=== PATIENT | female | born 1975 | race Caucasian/White ===

== ENCOUNTER 2019-08-21 14:08 | Emergency (ER) | payer BC, SELFPAY ==
--- NOTE | ~2019-08-21 | XR_ITS ---
EXAMINATION: XR chest 2V DATE: 08/21/2019 14:42 INDICATION: Cough and fever TECHNIQUE: PA and lateral views of the chest are obtained. COMPARISON: 03/16/2017 FINDINGS: The lungs are free of acute opacities. There is no pleural effusion or pneumothorax. The ca rdiomediastinal silhouette is normal. There is levoscoliosis of the upper thoracic spine. IMPRESSION: 1. No acute cardiopulmonary abnormality. Reviewed, dictated and finalized at location A.
--- NOTE | ~2019-08-21 | XR_ITS ---
EXAMINATION: XR sinus <3V INDICATION: Cough and fever TECHNIQUE: Three views of the paranasal sinuses are obtained. COMPARISON: None available FINDINGS: The paranasal sinuses are well pneumatized. No sinus opacification is identified. The facia l bones are unremarkable. There is levoscoliosis of the upper thoracic spine. IMPRESSION: 1. No evidence of sinusitis although sensitivity of radiographs is low. Reviewed, dictated and finalized at location A.
[2019-08-21 14:16] VITALS: BP 149/88; PULSE 75; RESP 16; TEMP 37.5; O2SAT 100
--- NOTE | 2019-08-21 14:36 | ED.URI ---
HPI - URI/Sore Throat General Chief Complaint: Upper Respiratory Infection Stated Complaint: SOB/chest hurts/drainage Source: patient and RN notes reviewed Mode of arrival: ambulatory Limitations: no limitations History of Present Illness HPI Narrative: The patient, a non-smoker/occasional drinker with Crohn's, presents with cough. Patient states she has a 5-day history of definite nasal congestion, postnasal drip and only minimal cough for which she was treated with Medrol Dosepak. No fever measured, wheeze N/V/D and she has insomnia, subjective shortness of breath [ yet good pulse ox] . Related Data Home Medications Medication Instructions Recorded Confirmed certolizumab pegol 400 mg SUB-Q ONCE 08/18/19 lactobacillus combination no.8 3 3,000 mmu cells PO DAILY 08/18/19 08/18/19 billion cell capsule lansoprazole 30 mg capsule,delayed 30 mg PO DAILY 08/18/19 release mercaptopurine 50 mg tablet 50 mg PO DAILY 08/18/19 multivitamin 1 tablet PO DAILY 08/18/19 08/18/19 certolizumab pegol [Cimzia] mg SUBCUT 08/21/19 Allergies Allergy/AdvReac Type Severity Reaction Status Date / Time No Known Allergies Allergy Verified 08/18/19 14:03 Review of Systems Review of Systems: Narrative: The patient has been informed that they may have pre-hypertension or Hypertension based on a BP reading in the department. I recommend that the patient call the primary care provider listed on their discharge instructions or a physician of their choice this week to arrange follow up for further evaluation of possible pre-hypertension or Hypertension General/Constitutional: No weight loss,fever Eyes: N0: Redness,discharge Ears/Nose/Throat: No: Epistaxis,ear discharge Respiratory: Denies: Hemoptysis Gastrointestinal: No Vomiting, Bleeding-rectal Skin: No Lumps, eruption Neurologic: No Focal Weakness,Sz Hematologic: Denies: Petechiae/Purpura Psychiatric: No: Suicida ideationl All Other Systems: Reviewed and Negative [facility] Past Medical History Medical History (Updated 08/21/19 @ 15:08 by Nicholas Elizalde MD) Dyspnea Social History Social History Smoking status: Never smoker Alcohol intake: current Comments At time of signature, agree with nursing past medical, surgical, social and family history. There is no relevant family history pertinent to the presenting complaint Exam Narrative: Exam Narrative: General Appearance: Well appearing, Well nourished EYE: PERRLA, Conjunctiva clear Ears: Auditory canal normal, TM normal Nose: Rhinorrhea, Mucousal erythema Mouth/Throat: MM moist, Uvula midline, Pharyngeal erythema Neck: Supple, No adenopathy Respiratory: No respiratory distress, airway patent Cardiovascular: RRR, No JVD Musculoskeletal: Non tender, Normal strength Skin: Warm, Dry Neurological: A&O x3, CN II-XII intact Psychiatric: Normal mood, Normal affect The patient agrees- in light of [facility]- in my medical judgement, only a personal or video chat was preferable to fully undress & examine the patient exhibiting potential COVID symptoms, in order to limit risk of mutual infection. Course Vital Signs Vital signs: Vital Signs Temperature 99.5 F 08/21/19 14:16 Pulse Rate 75 08/21/19 14:16 Respiratory Rate 16 08/21/19 14:16 Blood Pressure 149/88 H 08/21/19 14:16 Pulse Oximetry 100 08/21/19 14:16 Temperature 99.5 F 08/21/19 14:16 Pulse Rate 75 08/21/19 14:16 Respiratory Rate 16 08/21/19 14:16 Blood Pressure 149/88 H 08/21/19 14:16 Pulse Oximetry 100 08/21/19 14:16 MDM - URI/Sore Throat Lab Data Labs: Influenza A Screen Negative Reference Range: Negative Influenza B Screen Negative Reference Range: Negative Discharge Plan Discharge Clinical Impression: Upper respiratory infection Qualifiers: URI type: unspecified URI
== END 2019-08-21 15:13 | disposition home or self-care (01) ==
PROVIDERS: Emergency Provider Emergency Medicine; PCP Internal Medicine
DX: J06.9 Acute upper respiratory infection, unspecified (principal); K50.90 Crohn's disease, unspecified, without complications
CPT/HCPCS: 70210; 71046; 87804; 99213; G0463

== ENCOUNTER → 2020-05-16 11:34 | Outpatient (CLI) | payer BC, SELFPAY ==
--- NOTE | ~2020-05-16 | XR_ITS ---
EXAMINATION: XR chest 2V 05/16/2020 11:52 INDICATION: Acute upper respiratory infection PROCEDURE: 2 view chest COMPARISON: Comparison to multiple prior studies sequentially, with oldest reviewed study dated 08/2010. FINDINGS: The lungs are clear. The cardiomediastinal silhouette is within normal limits. There are no pleural effusions. There is no pneumothorax suspected. IMPRESSION: 1: NO ACUTE CARDIOPULMONARY DISEASE. Reviewed, dictated and finalized at location A. 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
== END ==
PROVIDERS: Visit Provider Internal Medicine
DX: J06.9 Acute upper respiratory infection, unspecified (principal)
CPT/HCPCS: 71046

== ENCOUNTER 2020-05-17 08:31 | Outpatient (NON) | payer BC, SELFPAY ==
[2020-05-17 22:01] LABS: SARS-CoV-2 RNA PCR Negative
== END 2020-05-17 08:32 ==
LOC: ANHCOVIDDT 08:32
PROVIDERS: Visit Provider Nurse Practitioner
DX: Z20.828 Contact with and (suspected) exposure to other viral communicable diseases (principal); R68.89 Other general symptoms and signs
CPT/HCPCS: 87635; C9803; U0003

== ENCOUNTER 2020-05-31 07:14 | Outpatient (CLI) | payer BC, SELFPAY ==
--- NOTE | ~2020-05-31 | MM_ITS ---
EXAMINATION: MM screening [facility] BI w lena HISTORY: Screening mammogram TECHNIQUE: Craniocaudal and mediolateral oblique 3-D tomosynthesis images were obtained and synthetic 2-D images were generated. CAD analysis was submitted and interpreted. COMPARISON: 04/29/2019, 04/20/2018, 01/23/2017 BREAST PARENCHYMAL COMPOSITION: There are scattered areas of fibroglandular density. FINDINGS: RIGHT BREAST: There is no evidence of suspicious mass, calcification, or architectural distortion to suggest malignancy. There has been no significant interval change. LEFT BREAST: An asymmetry is present in the middle third of the slightly outer breast on the cranioca udal view. IMPRESSION: 1. Left breast asymmetry on the craniocaudal view. 2. Additional mammographic views and possible breast ultrasound are recommended. BI-RADS Category 0: Incomplete: Needs additional imaging evaluation. Reviewed, dictated and finalized at location A. WARE ARCHITECT IMPRESSION: 1. Left breast asymmetry on the craniocaudal view. 2. Additional mammographic views and possible breast ultrasound are recommended . BI-RADS Category 0: Incomplete: Needs additional imaging evaluation.
== END 2020-05-31 07:15 | disposition home or self-care (01) ==
PROVIDERS: PCP Internal Medicine; Visit Provider Obstetrics & Gynecology
DX: Z12.31 Encounter for screening mammogram for malignant neoplasm of breast (principal); R92.8 Other abnormal and inconclusive findings on diagnostic imaging of breast
CPT/HCPCS: 77063; 77067

== ENCOUNTER 2020-06-18 11:38 | Outpatient (CLI) | payer BC, SELFPAY ==
--- NOTE | ~2020-06-18 | MM_ITS ---
EXAMINATION: MM diagnostic mammo unilat LT HISTORY: Left breast asymmetry on screening craniocaudal view of 06/18/2020 TECHNIQUE: Additional 3-D tomosynthesis images of the left breast were performed and synthetic 2-D im ages were generated. CAD analysis was submitted and interpreted. COMPARISON: 05/31/2020 bilateral digital screening mammogram FINDINGS: The area of asymmetry noted. Mid depth in the outer left breast on CC projection is not con firmed on coned compression or ML Tomosynthesis views. IMPRESSION: 1. No mammographic evidence of malignancy 2. Routine annual mammographic screening is recommended. BI-RADS Category 1: Negative Reviewed, dictated and finalized at location A. 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
== END 2020-06-18 11:39 | disposition home or self-care (01) ==
PROVIDERS: PCP Internal Medicine; Visit Provider Obstetrics & Gynecology
DX: R92.8 Other abnormal and inconclusive findings on diagnostic imaging of breast (principal)
CPT/HCPCS: 77065

== ENCOUNTER 2021-08-14 13:35 | Outpatient (CLI) | payer BC, SELFPAY ==
--- NOTE | ~2021-08-14 | MM_ITS ---
EXAMINATION: MM screening [facility] BI w lena HISTORY: Screening mammogram TECHNIQUE: Craniocaudal and mediolateral oblique 3-D tomosynthesis images were obtained and synthetic 2-D images were generated. CAD analysis was submitted and interpreted. COMPARISON: 06/18/2020, 05/31/2020, 04/29/2019 BREAST PARENCHYMAL COMPOSITION: There are scattered areas of fibroglandular density. FINDINGS: There is no suspicious mass, calcification, or architectural distortion to suggest malignan cy in either breast. There has been no suspicious interval change. IMPRESSION: 1. No mammographic evidence of malignancy. 2. Recommend routine screening mammography in one year. BI-RADS Category 1: Negative Reviewed, dictated and finalized at location A.
== END 2021-08-14 13:36 | disposition home or self-care (01) ==
LOC: ANHIMG 13:37
PROVIDERS: PCP Internal Medicine; Visit Provider Obstetrics & Gynecology
DX: Z12.31 Encounter for screening mammogram for malignant neoplasm of breast (principal)
CPT/HCPCS: 77063; 77067

== ENCOUNTER 2022-03-26 18:46 | Emergency (ER) | payer BC, SELFPAY ==
--- NOTE | 2022-03-26 19:04 | ED.EYEPROB ---
HPI - Eye Problem General Chief complaint: Eye Problems Stated complaint: eye redness Time Seen by Provider: 03/26/22 19:05 Source: patient Mode of arrival: ambulatory Limitations: no limitations History of Present Illness HPI Narrative: 46-year-old immunocompromised female presenting for complaint of right lower eyelid redness this morning. She endorses a ?swelling? sensation. Reports mild drainage to eye this morning. Denies injury. Denies significant pain, itching, denies vision changes, photophobia or foreign body sensation. Has not attempted any alleviating measures. Denies sick contacts. Hx Crohn's disease, hemochromatosis, anemia. chief complaint: eye pain Related Data Home Medications Medication Instructions Recorded Confirmed multivitamin 1 tablet PO DAILY 08/18/19 03/26/22 certolizumab pegol 400 mg/2 mL 2 mg subcut WEEKLY 08/21/19 03/26/22 (200 mg/mL x2) subcutaneous syringe kit (Cimzia) budesonide-formoterol HFA 80 2 puff inhalation Q12H 01/17/21 03/26/22 mcg-4.5 mcg/actuation aerosol inhaler (Symbicort) lansoprazole 30 mg capsule,delayed 30 mg PO ONCE 01/17/21 03/26/22 release nortriptyline 10 mg capsule 10 mg PO DAILY 03/26/22 03/26/22 Allergies Allergy/AdvReac Type Severity Reaction Status Date / Time No Known Allergies Allergy Verified 03/26/22 19:06 Review of Systems Review of Systems: CONSTITUTIONAL: Denies body aches, fever, chills EYES: Endorses swelling, redness to right eye ENT: Denies rhinorrhea, congestion, sore throat, or otalgia. CARDIOVASCULAR: Denies chest pain, palpitations RESPIRATORY: Denies cough or dyspnea. SKIN: Denies rash, itching, or wounds. MUSCULOSKELETAL: Denies back pain, joint pain, or myalgia. NEUROLOGIC: Denies headache, numbness, tingling, or weakness. All systems reviewed & are unremarkable except as noted in HPI and below PMFSH Past Medical History Medical History COVID-19 Crohn's disease with complication Dyspnea Hemochromatosis associated with mutation in HFE gene Vitamin D deficiency Family History Family History Mother Hypertension Father Patient's father is in good health Family history of lymphoma Family history of malignant neoplasm of urinary bladder Sibling Family history of gastrointestinal disorder Social History Social History Smoking status: Never smoker Second hand tobacco smoke exposure: Yes Alcohol intake: current Alcohol use details: Social Comments At time of signature, I have reviewed and agree with nursing past medical, surgical, social and family history unless otherwise noted. Please see nursing chart for further information. There is no relevant family history pertinent to the presenting complaint Exam Narrative: GENERAL: Well-appearing HEAD: Normocephalic, atraumatic. EYES: Right conjunctival injection, no eye lid swelling or stye, no drainage, nontender. PERRLA, EOMI. Lid eversion showed no FB. ENT: Mucous membranes pink and moist. No rhinorrhea. TMs normal bilaterally. Throat normal. Uvula midline. CHEST: Clear to auscultation. HEART: Regular rate and rhythm. SKIN: Warm, dry, no rash. Normal skin turgor. NEURO: No focal deficits. Alert and oriented x3 Course Course Emergency Course: Patient is aware of diagnosis, understands and agrees to treatment plan. Anticipatory guidance given. Patient agrees to follow-up as directed and is aware of reasons to seek care at the emergency department. Portions of this record may have been created with voice recognition software Level of Care: Express Care Visit MDM - Eye Problem MDM Narrative Medical decision making narrative: Patient presented with c/o red eye. Given her immunocompromised state will give Rx abx gtts. Advised supportive measures and signs/symptoms to go
[2022-03-26 19:07] VITALS: BP 148/90; PULSE 85; RESP 16; TEMP 37.1; O2SAT 100
[2022-03-26 19:09] VITALS: BP 148/90; PULSE 85; RESP 16; TEMP 37.1; O2SAT 100
== END 2022-03-26 19:19 | disposition home or self-care (01) ==
PROVIDERS: Emergency Provider Nurse Practitioner Family; PCP Internal Medicine
DX: H57.89 Other specified disorders of eye and adnexa (principal); K50.90 Crohn's disease, unspecified, without complications; E83.110 Hereditary hemochromatosis; Z86.16 Personal history of COVID-19
CPT/HCPCS: 99213; G0463

== ENCOUNTER 2022-11-03 18:34 | Emergency (ER) | payer BC, SELFPAY ==
--- NOTE | ~2022-11-03 | XR_ITS ---
EXAMINATION: XR ankle LT min 3V DATE: 11/03/2022 18:57 INDICATION: Left ankle pain TECHNIQUE: Anteroposterior, lateral, mortise, and additional oblique view of the ankle were obtained. COMPARISON: None. FINDINGS: Bone alignment is normal. There is no fracture. There is lateral soft tissue swelling of th e ankle. IMPRESSION: 1. Ankle soft tissue swelling without acute osseous abnormality. Reviewed, dictated and finalized at location F.
--- NOTE | ~2022-11-03 | XR_ITS ---
EXAMINATION: XR foot LT min 3V DATE: 11/03/2022 18:57 INDICATION: Left foot pain TECHNIQUE: Dorsoplantar, lateral, and 2 oblique views of the left foot were obtained. COMPARISON: None. FINDINGS: Bone alignment is normal. There is no fracture. There is dorsal soft tissue swelling of the foot overlying the metatarsals. IMPRESSION: 1. Soft tissue swelling without acute osseous abnormality. Reviewed, dictated and finalized at location F.
[2022-11-03 18:39] VITALS: BP 171/96; PULSE 84; RESP 16; TEMP 36.9; O2SAT 100
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
== END 2022-11-03 20:05 | disposition home or self-care (01) ==
PROVIDERS: Emergency Provider Registered Nurse
DX: S99.922A Unspecified injury of left foot, initial encounter (principal); V18.4XXA Pedal cycle driver injured in noncollision transport accident in traffic accident, initial encounter; S93.402A Sprain of unspecified ligament of left ankle, initial encounter; S70.12XA Contusion of left thigh, initial encounter; K50.90 Crohn's disease, unspecified, without complications; Z86.16 Personal history of COVID-19
CPT/HCPCS: 73610; 73630; 99213; G0463

== ENCOUNTER 2022-11-22 07:21 | Outpatient (CLI) | payer BC, SELFPAY ==
--- NOTE | ~2022-11-22 | MM_ITS ---
EXAMINATION: MM screening [facility] BI w lena HISTORY: Screening mammogram TECHNIQUE: Craniocaudal and mediolateral oblique 3-D tomosynthesis images were obtained and synthetic 2-D images were generated. CAD analysis was submitted and interpreted. COMPARISON: 08/14/2021, 06/18/2020, 05/31/2020, 04/29/2019 BREAST PARENCHYMAL COMPOSITION:The breasts are heterogeneously dense, which may obscure small masses. FINDINGS: No suspicious mass, calcification, or architectural distortion are identified in either [place] ast to suggest malignancy. There has been no suspicious interval change. IMPRESSION: No mammographic evidence of malignancy. Recommend routine screening mammography in one year. BI-RADS Category 1: Negative Reviewed, dictated and finalized at location .
== END 2022-11-22 07:22 | disposition home or self-care (01) ==
LOC: ANHIMG 07:24
PROVIDERS: PCP Family Medicine; Visit Provider Obstetrics & Gynecology
DX: Z12.31 Encounter for screening mammogram for malignant neoplasm of breast (principal)
CPT/HCPCS: 77063; 77067

== ENCOUNTER 2023-02-24 08:09 | Observation (INO) | payer BC, SELFPAY ==
[2023-02-24] VITALS (13 sets, daily range): BP systolic 129–182; BP diastolic 85–103; PULSE 71–134; RESP 15–25; TEMP 36.1–37; O2SAT 99–100; BMI 24.3
--- NOTE | ~2023-02-24 | XR_ITS ---
EXAMINATION: XR chest 2V DATE: 02/24/2023 08:44 INDICATION: Chest pain. TECHNIQUE: Frontal and lateral views of the chest were obtained. COMPARISON: Chest 2 views 05/16/2020 FINDINGS: There is no pneumonia, pleural effusion, or pneumothorax. The heart size is normal. IMPRESSION: 1. No acute cardiopulmonary disease. Reviewed, dictated and finalized at location A.
--- NOTE | 2023-02-24 08:14 | ECG_ITS ---
Measurements Intervals [place] Rate: 130 P: 69 CT: 124 QRS: -1 QRSD: 81 T: 62 QT: 272 QTc: 401 Interpretive Statements SINUS TACHYCARDIA INCOMPLETE RIGHT BUNDLE BRANCH BLOCK ABNORMAL ECG NO PREVIOUS ECG AVAILABLE FOR COMPARISON Electronically Signed On 02-24-2023 8:34:45 CDT by Ronal Bartholomew D.O.
--- NOTE | 2023-02-24 08:24 | ED.CHESTPAIN ---
HPI - Chest Pain General Chief Complaint: Chest Pain Stated Complaint: chest pain Time Seen by Provider: 02/24/23 08:12 History of Present Illness HPI narrative: 47-year-old female with history of Crohn's disease presenting to the ED for evaluation of chest pain and rapid heart rate that started this morning when she woke up. Patient had multiple episodes this morning where she felt lightheaded and dizzy with ambulation. While patient was attempting to get to work she had increased lightheaded dizziness and felt that she was having rapid heart rate. Upon arrival to the ED patient's heart rate was 200. Shortly after arrival into the room patient's heart rate did decrease down to 115 and patient did feel improved. Patient denies any prior history of coronary artery disease. Patient states she is going to be started on medications for blood pressure but is not on any hypertensive medications at this time. Patient denies any prior history of PE or DVT. Related Data Home Medications Medication Instructions Recorded Confirmed multivitamin 1 tablet PO DAILY 08/18/19 02/24/23 certolizumab pegol 400 mg/2 mL See Rx Instructions .Route .COMPLEX 08/21/19 02/24/23 (200 mg/mL x2) subcutaneous syringe kit (Cimzia) nortriptyline 10 mg capsule 10 mg PO HS 03/26/22 02/24/23 benzonatate 200 mg capsule 200 mg PO Q6H PRN Cough 02/24/23 02/24/23 budesonide-formoterol HFA 160 1 inh inhalation Q12H 02/24/23 02/24/23 mcg-4.5 mcg/actuation aerosol inhaler (Symbicort) Allergies Allergy/AdvReac Type Severity Reaction Status Date / Time No Known Allergies Allergy Verified 11/05/22 08:15 Review of Systems Review of Systems: All systems reviewed & are unremarkable except as noted in HPI and below PMFSH Past Medical History Medical History (Updated 02/24/23 @ 15:30 by Erica Obrien PA-C) COVID-19 Crohn's disease Hemochromatosis associated with mutation in HFE gene Hypertension Obstructive sleep apnea Noted on sleep study in December 2012. Vitamin D deficiency Surgical History Surgical History (Updated 02/24/23 @ 15:28 by Erica Obrien PA-C) History of nasal septoplasty For deviated septum. History of wisdom tooth extraction Family History Family History Mother Hypertension Father Patient's father is in good health Family history of lymphoma Family history of malignant neoplasm of urinary bladder Sibling Family history of gastrointestinal disorder Social History Social History (Updated 02/24/23 @ 15:29 by Erica Obrien PA-C) Social History: Surrogate medical decision maker: Bk Guidry, spouse. Code status: Full code. Smoking status: Never smoker Second hand tobacco smoke exposure: Yes Alcohol intake: never Alcohol use details: Social Lack of Transportation: No Lack of Food: Never True Current Housing: I Have Housing Concerned About Future Housing: No Difficulty Paying Gas/Electric Bills: No Difficulty Paying for Meds: No Currently Unemployed: No Education: Bachelor's Degree Difficulty w/ Childcare or Family Care: No Spiritual care concerns: No Exam Narrative: APPEARANCE: Uncomfortable appearing HEAD: normocephalic, atraumatic. EYES: PERRLA/EOMI, conjunctivae clear. NOSE: Normal no drainage NECK: Supple. No adenopathy, no masses. RESPIRATORY: Airway patent, respirations nonlabored. Clear to auscultation bilaterally, no rales, rhonchi, wheezing. CARDIOVASCULAR: Regular rate and rhythm without murmurs rubs or gallops. ABDOMINAL: Soft, nontender, nondistended, normal bowel sounds MUSCULOSKELETAL: Moves all extremities. Strength/ROM intact, No edema, No calf tenderness. NEURO: Alert. Cranial nerves II through XII intact. Good gait. Good coordination SKIN: Warm, dry. Normal Color Course Course Emergency Course: 47-year-old female presented ED for evaluation of chest pain and rapid heart rate.
[2023-02-24 08:42] LABS: Basophils Absolute Auto 0.1 K/mm3 (0.0-0.1); Basophils Percent Auto 0.4 % (0.2-1.2); Eosinophils Absolute Auto 0.1 K/mm3 (0-0.3); Eosinophils Percent Auto 0.5 % (0-4.4); Hematocrit 45.1 % (37.0-47.0); Hemoglobin 14.7 g/dL (12.0-15.0); Immature Granulocyte Absolute 0.04 K/mm3 (0.00-0.031); Immature Granulocyte Percent A 0.3 % (0-0.5); Lymphocytes Percent Auto 10.4 % (18.3-44.2); Mean Corpuscular HGB Conc 32.6 g/dl (32-36); Mean Corpuscular Hemoglobin 28.1 pg (26-34); Mean Corpuscular Volume 86.1 fl (80-100); Monocytes Absolute Auto 0.9 K/mm3 (0.1-0.6); Monocytes Percent Auto 7.3 % (2.6-8.5); Neutrophils Absolute Auto 9.4 K/mm3 (1.3-6.7); Neutrophils Percent Auto 81.1 % (45.5-73.1); Platelet Count Result 347 k/mm3 (150-375); Red Blood Count 5.24 M/mm3 (4.2-5.4); Red Cell Distribution Width 12.6 % (11.5-14.5); White Blood Count 11.6 K/mm3 (4.5-10.0)
[2023-02-24 08:46] LABS: Alanine Aminotransferase 30 U/L (6-35); Albumin Level 5.1 g/dL (3.5-5.1); Alkaline Phosphatase 82 U/L (38-126); Anion Gap 9 mmol/L (8-16); Aspartate Amino Transferase 38 U/L (14-36); Bilirubin,Total 0.7 mg/dL (0.2-1.3); Blood Urea Nitrogen 18 mg/dL (7-17); Calcium 9.9 mg/dL (8.4-10.2); Carbon Dioxide 27 mmol/L (22-30); Chloride 105 mmol/L (98-107); Estimated Glomerular Filt Rate > 60; Glucose 103 mg/dL (65-110); INR 0.9; Lipase 96 U/L (23-300); Potassium 4.2 mmol/L (3.4-5.0); Prothrombin Time 12.9 Seconds (11.1-14.7); Sodium 141 mmol/L (137-145)
[2023-02-24 08:47] LABS: Partial Thromboplastin Time 25.7 SECONDS (22.3-36.8)
[2023-02-24 08:54] LABS: D Dimer 0.29 ug/mL (<0.48)
[2023-02-24] MEDS: SODIUM CHLORIDE 0.9% IV 1,000 ML 999 ML (08:54)
[2023-02-24 08:57] LABS: Troponin I < 0.012 ng/mL (0.000-0.034)
[2023-02-24 11:55] LABS: Troponin I 0.026 ng/mL (0.000-0.034)
--- NOTE | 2023-02-24 15:19 | PM.IMHP ---
H&P: HPI History of Present Illness Date/Time: 02/24/23 15:20 Chief Complaint: Chest pain. Narrative: This is a very pleasant 47-year-old female with Crohn's disease and sleep apnea who presented to the emergency department via private vehicle from home for evaluation of chest pain. The patient provides the following history. She got up at about 03:00 and took some Tylenol for headache. She was able to fall back asleep in her alarm went off at 05:15 as per usual. She stood up to get ready for the day when she suddenly felt dizzy, lightheaded, and nauseated with sensations of racing heart. She sat back down and the symptoms seemed to improve somewhat. Each time she stood up however they returned. She had to sit down to take her shower and she had difficulties getting ready for work. Her heart was pounding so fast and so hard that she could hear it into her ears. Her chest was tight and she was feeling short of breath. After couple of hours her symptoms were not improving and she decided to come in for evaluation. With further questioning she does endorse having a few episodes over the past 1.5 months where her heart will suddenly start racing and fluttering with feelings of lightheadedness and blurry vision however that seems to last seconds before resolving. When she was initially hooked up to the monitor in the emergency department her post was reportedly over 200 however she slow down on her own into the 120s and her EKG looks like sinus tachycardia. Troponins have thus far been negative. She has not had any further episodes of racing heart but she continues to have mild chest tightness. She has no known history of cardiac dysrhythmia or thyroid disease. She denies significant caffeine and alcohol use. No drug use. She has fallen out of favor of using her CPAP although her remarks that she has periods of time or she stops breathing at night. No recent illnesses. Of note her blood pressures have been slowly going up over the years and she has an upcoming appointment with her doctor discussed the possibility of starting blood pressure medications. Review of Systems Review of Systems: Twelve systems were reviewed and are negative except for as per HPI. [facility] Past Medical History Medical History COVID-19 Crohn's disease Hemochromatosis associated with mutation in HFE gene Poorly documented, patient denies Hypertension Obstructive sleep apnea Noted on sleep study in December 2012. Vitamin D deficiency Surgical History Surgical History History of nasal septoplasty For deviated septum. History of wisdom tooth extraction Family History Family History Mother Hypertension Father Patient's father is in good health Family history of lymphoma Family history of malignant neoplasm of urinary bladder Sibling Family history of gastrointestinal disorder Social History Social History Social History: Surrogate medical decision maker: Bk Guidry, spouse. Code status: Full code. Smoking status: Never smoker Second hand tobacco smoke exposure: Yes Alcohol intake: never Alcohol use details: Social Lack of Transportation: No Lack of Food: Never True Current Housing: I Have Housing Concerned About Future Housing: No Difficulty Paying Gas/Electric Bills: No Difficulty Paying for Meds: No Currently Unemployed: No Education: Bachelor's Degree Difficulty w/ Childcare or Family Care: No Spiritual care concerns: No Meds Home Medications and Allergies Home Medications Medication Instructions Recorded Confirmed Type multivitamin 1 tablet PO DAILY 08/18/19 02/24/23 History certolizumab pegol 400 mg/2 mL See Rx Instructions .Route .COMPLEX 08/21/19 02/24/23 History (200 mg/
[2023-02-24 15:21] LABS: Troponin I 0.019 ng/mL (0.000-0.034)
--- NOTE | 2023-02-24 15:50 | ADMGEN ---
This patient, Libertad Guidry, was admitted to IMU Room 214-01. Patient/family oriented to hospital policies and general routines including ID bracelet, bed and alarms, visiting hours, pain management, procedures, bathroom and other care routines, personal items, smoking policy, room service/diet, and visiting hours. Information on how to activate the Rapid Response Team has been discussed. Patient/Family are encouraged to report perceived risks to care and to ask questions if they do not understand what they are told or what they should do.
[2023-02-24] MEDS: ACETAMINOPHEN 325 MG TABLET 650 MG PO ×2 (16:26→23:14)
[2023-02-24 20:05] LABS: Magnesium 2.2 mg/dL (1.6-2.3)
[2023-02-24 20:18] LABS: Troponin I < 0.012 ng/mL (0.000-0.034)
[2023-02-25] VITALS (12 sets, daily range): BP systolic 142–171; BP diastolic 83–102; PULSE 63–91; RESP 16–20; TEMP 35.8–36.6; O2SAT 97–100
--- NOTE | 2023-02-25 | ECHO_ITS ---
Patient Info Name: Libertad Guidry Age: 47 years : 1975 Gender: Female Ht: 66 in Wt: 164 lbs BSA: 1.88 m2 HR: 78 bpm BP: 145 / 89 mmHg Heart Rhythm: Sinus Rhythm Technical Quality: Fair Exam Date: 02/25/2023 12:11 PM Exam Location: [facility] Pulmonary Patient Status: Inpatient Admit Date: 02/24/2023 Staff Ordering Physician: Erica Obrien PA-C Early Breastfeeding Care Specialist: Radha Mobley RDCS Attending Provider: Yared Carreon MD Referring Physician: Camille RIVAS; Exam Type: CA echo doppler color flow Study Info Indications R00.0 - Tachycardia, unspecified R07.9 - Chest pain, unspecified Complete two-dimensional, color flow and Doppler transthoracic echocardiogram is performed. Summary 1. Complete two-dimensional, color flow and Doppler transthoracic echocardiogram is performed. 2. Left ventricular chamber dimension is mildly enlarged. 3. Left ventricular systolic function is normal, estimated at 55-60%. 4. There is no increased left ventricular wall thickness. 5. The left ventricular diastolic function is normal. 6. Right atrial chamber dimension is mildly enlarged. 7. There is trace tricuspid valve regurgitation. 8. No pulmonary hypertension, estimated pulmonary arterial systolic pressure is 33 mmHg. 9. There is mild mitral valve regurgitation. Left Ventricle Left ventricular chamber dimension is mildly enlarged. Left ventricular systolic function is normal, estimated at 55-60%. There is no increased left ventricular wall thickness. The left ventricular diastolic function is normal. Right Ventricle Right ventricular chamber dimension is normal. Right ventricular systolic function is normal. Left Atria Left atrial chamber dimension is normal. Right Atria Right atrial chamber dimension is mildly enlarged. Aortic Valve The aortic valve is trileaflet. There is mild aortic valve sclerosis. There is no aortic valve stenosis. There is no aortic valve regurgitation. Pulmonic Valve The pulmonic valve is normal. There is trace pulmonic regurgitation. Mitral Valve The mitral valve has thickened leaflets. There is mild mitral valve regurgitation. Tricuspid Valve The tricuspid valve leaflets are normal. There is trace tricuspid valve regurgitation. No pulmonary hypertension, estimated pulmonary arterial systolic pressure is 33 mmHg. Pericardium/Pleural The pericardium appears normal. There is no pericardial effusion. Inferior Vena Cava Normal inferior vena cava with >50% collapse upon inspiration consistent with normal right atrial pressure, 5 mmHg. Aorta The aortic root size at the sinus of Valsalva is normal. Left Ventricular Outflow Tract Name Value Normal LVOT 2D LVOT Diameter 2.0 cm LVOT Doppler LVOT Peak Gradient 4 mmHg LVOT Mean Gradient 2 mmHg LVOT VTI 18 cm LVOT VTI/AV VTI Ratio 0.9 LVOT Stroke Volume 58 ml LVOT CO 13.8 l/min LVOT CI 7.4 l/min/m2 Pulmonic Valve Name
[2023-02-25 06:33] LABS: Anion Gap 9 mmol/L (8-16); Blood Urea Nitrogen 12 mg/dL (7-17); Calcium 9.1 mg/dL (8.4-10.2); Carbon Dioxide 26 mmol/L (22-30); Chloride 103 mmol/L (98-107); Cholesterol 210 mg/dL (0-200); Estimated CRCL calculation 83 ml/min; Estimated Glomerular Filt Rate > 60; Glucose 96 mg/dL (65-110); HDL Direct 72 mg/dL; Potassium 3.8 mmol/L (3.4-5.0); Sodium 138 mmol/L (137-145); Triglycerides 109 mg/dL (<150)
[2023-02-25 06:44] LABS: LDL Cholesterol Direct 91 mg/dL
[2023-02-25] MEDS: FLUTICASONE/SALMETEROL 115-21 MCG INHALER 1 PUFF INHALATION (08:03)
[2023-02-25] MEDS: ENOXAPARIN 40 MG/0.4 ML SYRINGE SUB-Q (08:34)
--- NOTE | 2023-02-25 10:33 | PM.IMPN ---
Progress Note: A&P Assessment and Plan (1) Tachycardia: Code(s): R00.0 - Tachycardia, unspecified Status: Acute (2) Chest pain: Code(s): R07.9 - Chest pain, unspecified Status: Acute (3) Hypertension: Code(s): I10 - Essential (primary) hypertension Status: Acute (4) Crohn's disease: Code(s): K50.90 - Crohn's disease, unspecified, without complications Status: Acute Plan A flutter and RVR The patient presented to the emergency department for evaluation sensations of racing heart and chest discomfort as HPI. Heart rate was over 200 when she got to the ER however it slow down quickly on its own thus it is difficult to say what rhythm she was in initially. She has had a couple of fleeting episodes of racing heart and fluttering as per HPI but nothing this longstanding. She is being monitored closely in IMU. Echocardiogram ordered for a.m.. TSH is within normal limits. We discussed the importance of being compliant with her CPAP. Consult mothercraft nurse for evaluation and management Essential hypertension, uncontrolled Not on home medication Start carvedilol 6.25 mg q.12 hours p.o., hydrochlorothiazide 25 mg daily p.o. She may need event monitor on discharge. No acute issues with regards for Crohn's disease. Her home medications will be reviewed and resumed as appropriate. Subjective Date/time seen: 02/25/23 10:33 Interval history: Patient feels better today, denies chest pain, palpitation, short of breath. Now patient has sinus rhythm Exam Narrative: General: Well-developed, nontoxic-appearing female in the semi-Hamilton position in bed in no distress. Weight: 69.3 kg. BMI: 24.3. HEENT: PERRL, EOMI. Sclera anicteric. Oral mucosa moist. Oropharynx clear. Neck: Supple. Respiratory: Lungs are clear to auscultation bilaterally. Cardiovascular: Regular rate and rhythm with S1-S2. Gastrointestinal: Abdomen is soft, nontender, and nondistended with positive bowel sounds. Skin: Warm and dry. No rash or lesions on limited exam. Extremities: No cyanosis, clubbing, or edema. Radial and pedal pulses intact. Neurological: Alert. Cranial nerves 2-12 are grossly intact. No gross focal deficits to casual conversation. Psychiatric: Pleasant and cooperative with normal mood and affect. Judgment and insight intact. Objective Data Vital Signs Vital Signs: Vital Signs - 24 hr 02/24/23 11:08 02/24/23 12:01 02/24/23 13:01 Temperature Pulse Rate 81 78 80 Respiratory Rate 15 19 18 Blood Pressure 129/90 142/95 H 149/98 H Pulse Oximetry 100 100 100 Oxygen Delivery Fraction of Inspired Oxygen 02/24/23 14:00 02/24/23 15:00 02/24/23 15:44 Temperature 98.2 F 98.0 F 98.6 F Pulse Rate 80 90 85 Respiratory Rate 16 16 18 Blood Pressure 150/97 H 153/99 H 148/85 H Pulse Oximetry 100 100 100 Oxygen Delivery Fraction of Inspired Oxygen 02/24/23 16:00 02/24/23 16:00 02/24/23 20:00 Temperature 97.1 F L Pulse Rate 89 71 Respiratory Rate 20 Blood Pressure 148/95 H Pulse Oximetry 99 Oxygen Delivery Room Air Fraction of Inspired Oxygen 02/24/23 23:10 02/24/23 20:00 02/24/23 20:00 Temperature 97 F L Pulse Rate 78 88 Respiratory Rate 18 Blood Pressure 150/97 H Pulse Oximetry 100 99 Oxygen Delivery Room Air Fraction of Inspired Oxygen 02/25/23 00:00 02/25/23 00:00 02/24/23 22:00 Temperature Pulse Rate 63 72 Respiratory Rate Blood Pressure Pulse Oximetry 100 Oxygen Delivery Room Air Fraction of Inspired Oxygen 02/25/23 02:00 02/25/23 04:00 02/25/23 04:00 Temperature 97.7 F Pulse Rate 65 71 Respiratory Rate 20 Blood Pressure 145/89 H Pulse Oximetry 98 98 Oxygen Delivery Room Air Fraction of Inspired Oxygen 02/25/23 04:00 02/25/23 06:00 02/25/23 08:04 Temperature Pulse Rate 67 82 Respiratory Rate Blood Pressure Pulse Oximetry 97 Oxygen Delivery Room A
--- NOTE | 2023-02-25 10:55 | PM.CNCAR ---
Assessment and Plan Assessment and plan (1) Tachycardia: Code(s): R00.0 - Tachycardia, unspecified Status: Acute Assessment and Plan: Patient presents with tachycardia reported 200 beats per minute highly suggestive of SVT. However, there is no documentation unfortunately available for review and confirmation. She has remained in sinus rhythm with intermittent sinus tachycardia with gradual rise and fall her heart rate. She has not had recurrent documented SVT or other bradyarrhythmia. At great length we discussed pathophysiology, management strategies with regards to SVT including observation on medical management, and or referral to electrophysiology for catheter based ablation depending on diagnosis and symptom complex. Clinically, she clearly appears to be highly symptomatic with the rapid tachycardia which diagnosis remains elusive. However, patient other symptoms for pervasive fatigue, dizziness more likely related to uncontrolled hypertension and untreated probably severe obstructive sleep apnea. We discussed increase flecainide arrhythmias and impact inquired life with untreated sleep apnea as well as her blood pressure. She has been started on carvedilol 6.25 mg twice daily by the hospitalist service which is fair. No other clear contribution to this time. TSH negative, electrolytes stable. Twelve lead ECG consistent with sinus tachycardia at presentation with RSR' V1 V2 heart rate 130 beats per minute otherwise borderline ECG. There is no clear evidence of significant inappropriate sinus tachycardia or posture orthostatic tachycardia syndrome given or more recent development of her symptoms. -Continue telemetry observation while hospitalized. Thirty day front desk monitor upon discharge through our office documentation of arrhythmia. -obtain 2D echo cardiac to assess LV size/function, valve pathology and pulmonary pressures LV wall thickness and chamber size. Further recommendation to follow after review. (2) Chest pain: Qualifiers: Chest pain type: other chest pain Qualified Code(s): R07.89 - Other chest pain Code(s): R07.9 - Chest pain, unspecified Status: Acute Assessment and Plan: Chest pain most likely secondary to demand ischemia in association with probable SVT resolved with termination. Serial troponins negative. No plans for ischemic evaluation at this time. Will review 2D echocardiogram as above. Recommendation to follow. DVT prophylaxis. No evidence for contribution by anemia, renal insufficiency or electrolyte abnormalities. Patient was ambulated with caution to avoid risk for falls and injuries given constellation of symptoms of presentation. (3) Hypertension: Qualifiers: Hypertension type: primary hypertension Qualified Code(s): I10 - Essential (primary) hypertension Code(s): I10 - Essential (primary) hypertension Status: Acute Assessment and Plan: Chronic, untreated hypertension. Initiate antihypertensive therapy. If significant LVH ARB may be beneficial. Patient markedly orthostatic, caution with diuretics antihypertensives such as hydrochlorothiazide. Intravascular volume depletion will worsen her tachycardic/compensatory heart rate response. (4) Near syncope: Code(s): R55 - Syncope and collapse Status: Acute Assessment and Plan: Patient denies syncope at any time. She does admit to some positional lightheadedness, and near syncope in conjunction with rapid heart rate probably due to SVT. Further workup as above. (5) Obstructive sleep apnea: Code(s): G47.33 - Obstructive sleep apnea (adult) (pediatric) Status: Acute Assessment and Plan: We discussed this at great length. Discussed the importance of compliance not only for quite life but for stabilization of blood pressure, reduction risk for recurrent SVT and the long-term effects of untreated severe obstructive sleep apnea. Apnea link
--- NOTE | 2023-02-25 15:26 | PM.DS ---
DS: Admitting Diagnosis Discharge Date Today Admitting Diagnosis (1) Tachycardia: ?Code(s): R00.0 - Tachycardia, unspecified ?Status:?Acute (2) Chest pain: ?Code(s): R07.9 - Chest pain, unspecified ?Status:?Acute (3) Hypertension: ?Code(s): I10 - Essential (primary) hypertension ?Status:?Acute (4) Crohn's disease: ?Code(s): K50.90 - Crohn's disease, unspecified, without complications ?Status:?Acute DS: Discharge Diagnosis Discharge Diagnosis (1) Near syncope: Code(s): R55 - Syncope and collapse Status: Acute Plan (1) Tachycardia: ?Code(s): R00.0 - Tachycardia, unspecified ?Status:?Acute (2) Chest pain: ?Code(s): R07.9 - Chest pain, unspecified ?Status:?Acute (3) Hypertension: ?Code(s): I10 - Essential (primary) hypertension ?Status:?Acute (4) Crohn's disease: ?Code(s): K50.90 - Crohn's disease, unspecified, without complications ?Status:?Acute Near syncope DS: Summary Hospital Course Hospital Course: Per H&P, this is a very pleasant 47-year-old female with Crohn's disease and sleep apnea who presented to the emergency department via private vehicle from home for evaluation of chest pain. The patient provides the following history. She got up at about 03:00 and took some Tylenol for headache. She was able to fall back asleep in her alarm went off at 05:15 as per usual. She stood up to get ready for the day when she suddenly felt dizzy, lightheaded, and nauseated with sensations of racing heart. She sat back down and the symptoms seemed to improve somewhat. Each time she stood up however they returned. She had to sit down to take her shower and she had difficulties getting ready for work. Her heart was pounding so fast and so hard that she could hear it into her ears. Her chest was tight and she was feeling short of breath. After couple of hours her symptoms were not improving and she decided to come in for evaluation. With further questioning she does endorse having a few episodes over the past 1.5 months where her heart will suddenly start racing and fluttering with feelings of lightheadedness and blurry vision however that seems to last seconds before resolving. When she was initially hooked up to the monitor in the emergency department her post was reportedly over 200 however she slow down on her own into the 120s and her EKG looks like sinus tachycardia. Troponins have thus far been negative. She has not had any further episodes of racing heart but she continues to have mild chest tightness. She has no known history of cardiac dysrhythmia or thyroid disease. She denies significant caffeine and alcohol use. No drug use. She has fallen out of favor of using her CPAP although her remarks that she has periods of time or she stops breathing at night. No recent illnesses. Of note her blood pressures have been slowly going up over the years and she has an upcoming appointment with her doctor discussed the possibility of starting blood pressure medications. The following medical issues have been addressed during hospitalization A flutter RVR vs SVT The patient presented to the emergency department for evaluation sensations of racing heart and chest discomfort as HPI. Heart rate was over 200 when she got to the ER however it slow down quickly on its own thus it is difficult to say what rhythm she was in initially. She has had a couple of fleeting episodes of racing heart and fluttering as per HPI but nothing this longstanding. She is being monitored closely in IMU. Echocardiogram REVEALS NORMAL EF, NO SIGNIFICANT VASCULAR DISEASE..? TSH is within normal limits. We discussed the importance of being compliant with her CPAP. Consult welder boilermaker for evaluation and management. Power Truck Driver agreed to discharge patient with event monitor on discharge. Cardiology will follow patient in office Essential hypertension, uncontrolled Not on home medic
--- NOTE | 2023-02-25 16:02 | PC.NURSE ---
On 02/25/23, the student, Aguilar [facility], provided care and completed [facility] documentation on this patient. I have reviewed the student's documentation and agree with the findings.
== END 2023-02-25 15:43 | disposition home or self-care (01) ==
LOC: ANHED 13:05 → ANHIMU 02-25 11:42
PROVIDERS: Physician Assistant; Admitting Provider Chiropractor; Emergency Provider Emergency Medicine; PCP Family Medicine; Visit Provider Hospitalist
DX: R00.0 Tachycardia, unspecified (principal); R07.9 Chest pain, unspecified; R55 Syncope and collapse; I10 Essential (primary) hypertension; K50.90 Crohn's disease, unspecified, without complications; R42 Dizziness and giddiness; R51.9 Headache, unspecified; I08.0 Rheumatic disorders of both mitral and aortic valves; I45.10 Unspecified right bundle-branch block; R05.9 Cough, unspecified; G47.33 Obstructive sleep apnea (adult) (pediatric); Z99.89 Dependence on other enabling machines and devices; E83.110 Hereditary hemochromatosis; Z86.16 Personal history of COVID-19; Z79.51 Long term (current) use of inhaled steroids; Z79.899 Other long term (current) drug therapy; Z82.49 Family history of ischemic heart disease and other diseases of the circulatory system
CPT/HCPCS: 36415; 71046; 80048; 80053; 80061; 83690; 83735; 84443; 84484; 85025; 85380; 85610; 85730; 93005; 93306; 94640; 96360; 96372; 99285; A9270; G0378; J1650; J7030

== ENCOUNTER 2023-05-15 03:00 | Day surgery (SDC) | payer BC, SELFPAY ==
[2023-05-15] VITALS (27 sets, daily range): BP systolic 119–184; BP diastolic 71–103; PULSE 46–77; RESP 12–21; TEMP 36.7–36.9; O2SAT 96–100; BMI 25.9
[2023-05-15 08:46] LABS: Basophils Absolute Auto 0.1 K/mm3 (0.0-0.1); Basophils Percent Auto 0.6 % (0.2-1.2); Eosinophils Absolute Auto 0.1 K/mm3 (0-0.3); Hematocrit 40.2 % (37.0-47.0); Hemoglobin 13.1 g/dL (12.0-15.0); Immature Granulocyte Absolute 0.02 K/mm3 (0.00-0.031); Immature Granulocyte Percent A 0.2 % (0-0.5); Lymphocytes Absolute Auto 1.41 K/mm3 (0.9-3.2); Lymphocytes Percent Auto 17.5 % (18.3-44.2); Mean Corpuscular HGB Conc 32.6 g/dl (32-36); Mean Corpuscular Hemoglobin 27.5 pg (26-34); Mean Corpuscular Volume 84.5 fl (80-100); Monocytes Absolute Auto 0.6 K/mm3 (0.1-0.6); Monocytes Percent Auto 7.2 % (2.6-8.5); Neutrophils Absolute Auto 5.9 K/mm3 (1.3-6.7); Neutrophils Percent Auto 73.5 % (45.5-73.1); Platelet Count Result 252 k/mm3 (150-375); Red Blood Count 4.76 M/mm3 (4.2-5.4); Red Cell Distribution Width 11.9 % (11.5-14.5)
[2023-05-15 08:55] LABS: Anion Gap 8 mmol/L (8-16); Blood Urea Nitrogen 22 mg/dL (7-17); Calcium 9.8 mg/dL (8.4-10.2); Carbon Dioxide 27 mmol/L (22-30); Chloride 106 mmol/L (98-107); Estimated CRCL calculation 63 ml/min; Estimated Glomerular Filt Rate > 60; Glucose 93 mg/dL (65-110); Potassium 4.4 mmol/L (3.4-5.0); Sodium 141 mmol/L (137-145)
[2023-05-15 09:11] LABS: Beta HCG Quantitative 4.13 mIU/ML
--- NOTE | 2023-05-15 09:13 | WPDMODSED ---
Moderate Sedation Note-Pt Data Patient Data Diagnosis: Chest pain/etiology uncertain Mildly abnormal stress test Supraventricular tachycardia Present Complaint: Intermittent chest pain Procedure to be performed/Plan: Left heart catheterization Allergies Allergy/AdvReac Type Severity Reaction Status Date / Time No Known Allergies Allergy Verified 05/14/23 12:46 Home Medications Medication Instructions Recorded Confirmed Type multivitamin 1 tablet PO DAILY 08/18/19 05/14/23 History certolizumab pegol 400 mg/2 mL See Rx Instructions .Route .COMPLEX 08/21/19 05/14/23 History (200 mg/mL x2) subcutaneous syringe kit (Cimzia) benzonatate 200 mg capsule 200 mg PO Q6H PRN Cough 02/24/23 05/14/23 History budesonide-formoterol HFA 160 1 inh inhalation Q12H 02/24/23 05/14/23 History mcg-4.5 mcg/actuation aerosol inhaler (Symbicort) carvedilol 6.25 mg tablet (Coreg) 6.25 mg PO Q12HR #60 tabs 02/25/23 05/15/23 Rx Current Medications: Active Medications Sodium Chloride (Normal Saline Iv) 500 mls @ 100 mls/hr IV CONT .Q5H LUISA Sedation/Anesthesia: No previous sedation/anesthesia problems (including family history). [facility] Past Medical History Medical History COVID-19 Crohn's disease Hemochromatosis associated with mutation in HFE gene Poorly documented, patient denies Hypertension Obstructive sleep apnea Noted on sleep study in December 2012. Vitamin D deficiency Surgical History Surgical History History of nasal septoplasty For deviated septum. History of wisdom tooth extraction Family History Family History Mother Hypertension Father Patient's father is in good health Family history of lymphoma Family history of malignant neoplasm of urinary bladder Sibling Family history of gastrointestinal disorder Social History Social History Social History: Surrogate medical decision maker: Bk Guidry, spouse. Code status: Full code. Smoking status: Never smoker Second hand tobacco smoke exposure: No Alcohol intake: never Alcohol use details: 1 per month Substance use: never Substance use type: does not use Lack of Transportation: No Lack of Food: Never True Current Housing: I Have Housing Concerned About Future Housing: No Difficulty Paying Gas/Electric Bills: No Difficulty Paying for Meds: No Currently Unemployed: No Education: Bachelor's Degree Difficulty w/ Childcare or Family Care: No Living arrangements: with family Spiritual care concerns: No Mod Sed Physical Exam Physical Exam Pre Procedural Exam: Normal: Appearance, Neck, Throat, Airway, Lungs, Heart Size, Heart Rate, Heart Rhythm, Neuro Exam and Extremities Hours since solid foods: 12 Hours since liquid intake: 12 Mallampati Classification: class II Internal Medicine - PN: Obj Da Vital Signs Vital Signs: Vital Signs - 24 hr 05/15/23 08:00 Temperature 36.7 C Pulse Rate 73 Respiratory Rate 18 Blood Pressure 150/93 H Pulse Oximetry 99 Oxygen Delivery Room Air Intake/Output Intake/Output: Intake & Output 05/12/23 05/13/23 05/14/23 05/15/23 23:59 23:59 23:59 23:59 Intake Total 0 Balance 0 Meds/Results Medications: Active Medications Generic Name Dose Route Start Last Admin Trade Name Freq PRN Reason Stop Dose Admin Sodium Chloride 500 mls @ 100 mls/hr 05/15/23 08:00 Normal Saline Iv IV CONT .Q5H LUISA Labs 05/15/23 08:31 05/15/23 08:31 Labs: Laboratory Results - last 24 hr 05/15/23 05/15/23 08:31 08:31 WBC 8.0 RBC 4.76 Hgb 13.1 Hct 40.2 MCV 84.5 MCH 27.5 MCHC 32.6 RDW 11.9 Plt Count 252 MPV 10.0 Immature Gran % (Auto) 0.2 Neut % (Auto) 73.5 H Lymph %
--- NOTE | 2023-05-15 10:02 | P.PCNCC_ITS ---
Cardiac Cath Procedure Note Date of procedure:: 05/15/23 Performing physician:: Yared Sheppard MD Indication:: History of chest pain/atypical of angina SVT mildly abnormal exercise stress test Brief clinical history:: this is a 48-year-old woman without any prior history of coronary disease. She has been experiencing episodes of intermittent chest pain for several months. She also has been found to have supraventricular tachycardia this however does not appear to correlate with her symptoms of chest pain. An exercise stress test demonstrated [address] segment elevation prompting recom mendation for this angiogram. Procedure Procedure performed:: Left ventriculogram coronary angiogram Sedation/Medication given:: fentanyl 50 mg Versed 2 mg case start time 944 a.m. case end time 10:00 a.m. sedation provided by Calvin Ewing RN, trained observer Access site:: right femoral artery Estimated blood loss:: 20 cc Procedure note:: patient was brought to the cardiac catheterization lab in the postabsorptive state where the right femoral triangle was prepared and draped in the usual fashion. Anesthesia was provided with 1% lidocaine infiltrated locally. Using the modified Seldinger technique the 5 femoral artery was punctured and a 5 [place] vascular sheath was placed. After this left heart catheterization was carried out. A 5 [place] angled pigtail catheter was used to measure left-sided hemodynamics as well as to injected left ventriculogram in the SMITH projection. Following this a standard 5 [place] FL4 catheter was used to engage and inject the left coronary artery and then a 5 [place] JR4 catheter to engage and inject the right coronary artery. the cineangiograms were then reviewed and the case was terminated. Femoral artery angiogram was performed through the sheath after which I determined to have sheath with direct manual compression. The procedure was well tolerated in the were no apparent complications. She left the cardiac catheterization with no evidence of groin hematoma. Findings:: Hemodynamics: Central aortic pressure is 162 over 84 left ventricle 162/5 end-diastolic pressure 16 there is no gradient across the aortic valve on pullback. Left ventricle: The LV is normal in size all segments contract appropriately the global ejection fraction is 55% without regional wall motion abnormality. The left main coronary artery is nicely patent the left anterior descending is a moderate caliber artery extending down to the end around the apex. The LAD and its branches are angiographically smooth and free of disease. The circumflex is a large caliber artery and is dominant to the posterior cir culation. The circumflex trunk, the marginal branches as well as the posterior branches are angiographically smooth and free of disease. The right coronary artery is medium in caliber and non dominant giving rise to 3 right ventricular branches. The right coronary is also smooth and angiographically free of disease. Conclusion:: 1. Left coronary dominant circulation with no angiographic evidence of coronary artery disease 2. normal left ventricular systolic function Yared Sheppard MD FACC
[2023-05-15] MEDS: LABETALOL HCL INJ 100 MG/20 ML VIAL 20 MG IV PUSH (10:58)
[2023-05-15] MEDS: SODIUM CHLORIDE 0.9% IV 1,000 ML 125 ML IV CONT (11:00)
== END 2023-05-15 16:20 | disposition home or self-care (01) ==
PROVIDERS: PCP Family Medicine; Visit Provider Specialist
PROC: 4A023N7 Measurement of Cardiac Sampling and Pressure, Left Heart, Percutaneous Approach (ICD-10-PCS; CPT 93452; principal; 2023-05-15 09:30)
DX: R94.39 Abnormal result of other cardiovascular function study (principal); I47.10 Supraventricular tachycardia, unspecified; R07.9 Chest pain, unspecified; K50.90 Crohn's disease, unspecified, without complications; I10 Essential (primary) hypertension; G47.33 Obstructive sleep apnea (adult) (pediatric); Z79.51 Long term (current) use of inhaled steroids
CPT/HCPCS: 36415; 80048; 84702; 85025; 93458; C1887; C1894; J1644; J2250; J3010; J7030; J7040

== ENCOUNTER → 2023-07-10 13:08 | Outpatient (CLI) | payer BC, SELFPAY ==
--- NOTE | ~2023-07-10 | US_ITS ---
EXAMINATION: US abdomen limited DATE: 07/10/2023 13:40 INDICATION: Elevated liver function tests TECHNIQUE: Multiple grayscale and Doppler ultrasound images of the abdomen were obtained. COMPARISON: None available FINDINGS: The head and body of the pancreas are normal. The pancreatic tail is obscured by bowel gas. There is a 12 mm cyst of the right hepatic lobe. The liver is otherwise normal with normal echogenic ity and echotexture. No surface nodularity. Normal hepatopetal flow in the main portal vein. The gall bladder is normal with no abnormal wall thickening, pericholecystic fluid or stones. The normal commo n bile duct measures 3 mm. There was no sonographic Alexandre sign. IMPRESSION: 1. Normal sonographic study of the gallbladder. Reviewed, dictated and finalized at location B. 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
== END ==
PROVIDERS: PCP Family Medicine; Visit Provider Family Medicine
DX: R74.01 Elevation of levels of liver transaminase levels (principal)
CPT/HCPCS: 76705

== ENCOUNTER 2023-08-14 06:55 | Outpatient (CLI) | payer BC, SELFPAY ==
--- NOTE | ~2023-08-14 | XR_ITS ---
Right Shoulder Technique: AP and axillary views were obtained. Clinical History: Pain Findings: No fracture or dislocation is seen. Osseous alignment is anatomic. The glenohumeral and acr omioclavicular joint spaces are preserved. Soft tissues are unremarkable. Impression: Unremarkable right shoulder radiographs. Reviewed, dictated and finalized at [facility]. Impression: Unremarkable right shoulder radiographs.
--- NOTE | ~2023-08-14 | XR_ITS ---
Cervical Spine: AP, lateral, open-mouth views Clinical History: Radiculopathy Findings: There is mild reversal normal cervical lordosis. There is advanced degenerative disc narrow ing at C6-C7. There is moderate degenerative disc narrowing at C5-C6. Mild facet arthropathy present. Pre-vertebral soft tissues are unremarkable. Impression: [id number] degenerative spondylosis, especially the lower cervical spine, as above. Reviewed, dictated and finalized at [facility]. Impression: [id number] degenerative spondylosis, especially the lower cervical spine, as above.
== END 2023-08-14 06:56 ==
PROVIDERS: PCP Family Medicine; Visit Provider Family Medicine
DX: M43.02 Spondylolysis, cervical region (principal); M25.511 Pain in right shoulder
CPT/HCPCS: 72050; 73030

== ENCOUNTER → 2023-08-21 08:29 | Outpatient (CLI) | payer BC, SELFPAY | PROVIDERS: PCP Family Medicine; Visit Provider Family Medicine | DX: G47.33 Obstructive sleep apnea (adult) (pediatric) (principal) | CPT/HCPCS: 99199 ==

== ENCOUNTER 2023-09-11 08:59 | Outpatient (CLI) | payer BC, SELFPAY ==
[2023-09-22 17:00] VITALS: BMI 26.6
--- NOTE | 2023-09-22 17:00 | WPDSLEEPSTUD ---
Sleep Study Date of Study: 09/11/23 Ordering Provider: Bruce Daniel MD Interpreting Physician: Cecile Murcia DO Sleep Study Type: Split Polysomnogram Height: 1.68 m Weight: 74.843 kg Body Mass Index: 26.6 Neck Circumference (inches): 13.5 [place]: 9 Reason for Sleep Study Previously diagnosed with LISA on 01/05/2023 that showed an overall AHI of 12.5 with desaturation down to 92%. PAP Titration on 01/14/2023 showed an optimal pressure of CPAP 6 cm H2O. Stopped using CPAP about 10 years ago. The patient had a Sultan home sleep test on 03/26/2023 that showed an AHI of 2.9 with desaturation down to 90%. Sleep History The patient is a 48-year-old female hypertension, anxiety, Crohn's disease and previously diagnosed sleep apnea that had a sleep study ordered by her primary care physician due to sleep disturbances. The patient occasionally awakens from sleep short of breath. She denies awakening at night with heartburn, belching or cough. She constantly snores loudly enough that others complain. She frequently has trouble sleeping when she has a cold. She occasionally wakes up gasping for air throughout the night. He frequently has breathing problems at night observed by herself or others. She rarely sweats excessively at night. She occasionally has heart palpitations or irregular heartbeats during the night. She denies falling asleep during the day and while driving. He denies sleep paralysis, cataplexy and hypnagogic / hypnopompic hallucinations. She denies having trouble at school or work due to sleepiness. She denies feeling afraid of going to sleep. She denies having nightmares. She denies remembering her dreams. She occasionally has thoughts racing through her mind. She rarely feels sad or depressed. She occasionally has anxiety. She occasionally has muscular tension. She rarely notices parts of her body jerk. She denies kicking during the night. She occasionally has crawling and aching feelings in her legs and occasionally has leg pain during the night. She denies grinding her teeth during sleep and denies awakening with morning jaw pain. She is occasionally bothered by pain during the day and occasionally awakened by pain during the night. She occasionally wakes up feeling stiff in the morning. She occasionally wakes up with sore or achy muscles. She occasionally wakes up with pain in the neck, spine and other joints. She goes to bed at 7:30 p.m. on weekdays and between 9-10 p.m. on the weekends. It takes her 1 hour to fall asleep. She wakes up 2-3 times throughout the night for unknown reasons and will either look at her phone, urinate or get a drink when she awakens. It takes her 20-30 minutes to fall back asleep. She wakes up at 4:30 a.m. on weekdays and between 430-5 a.m. on the weekends. She will stay in bed for 1 hour on weekdays after awakening and up to 3 hours on the weekends. She currently lives with her and son. She denies consuming any caffeinated beverages within 2 hours of bedtime. She denies engaging in physical exercise before bedtime. She will watch television before falling asleep. He denies taking naps in the afternoon or the evening. She consumes 1 cup of a caffeinated beverage per day during the week and to caffeinated beverages per day on the weekend. She consumes 2-3 alcoholic beverages per month. She denies tobacco and recreational drug use. [facility] Past Medical History Medical History COVID-19 Crohn's disease Hemochromatosis associated with mutation in HFE gene Poorly documented, patient denies Hypertension Obstructive sleep apnea Noted on sleep study in December 2012. Vitamin D deficiency Surgical History Surgical History History of nasal septoplasty For deviated septum. History of wisdom tooth extraction Family History Family History Mother Hypertension Father Patient's father is in good health Family history of lymphoma Family history of malignant neoplasm of urinary bladder Sibling Family history of gastrointestinal disorder Social History Social History Social History: Surrogate medical decision maker: Bk Guidry, spouse. Code status: Full code. Smoking status: Never smoker Second hand tobacco smoke exposure: No Alcohol intake: never Alcohol use details: 1 per month Substance use: never Substance use type: does not use Lack of Transportation: No Lack of Food: Never True Current Housing: I Have Housing Concerned About Future Housing: No Difficulty Paying Gas/Electric Bills: No Difficulty Paying for Meds: No Currently Unemployed: No Education: Bachelor's Degree Difficulty w/ Childcare or Family Care: No Living arrangements: with family Gender identity (if verbalized by the patient): Female Sexual Orientation (if Verbalized by the Patient): Straight or Heterosexual Spiritual care concerns: No Medications Home Medications Medication Instructions Recorded Confirmed Type multivitamin 1 tablet PO DAILY 08/18/19 05/14/23 History certolizumab pegol 400 mg/2 mL See Rx Instructions .Route .COMPLEX 08/21/19 05/14/23 History (200 mg/mL x2) subcutaneous syringe kit (Cimzia) carvedilol 6.25 mg tablet (Coreg) 6.25 mg PO Q12HR #60 tabs 02/25/23 05/15/23 Rx cholecalciferol (vitamin D3) 1,250 1,250 mcg PO WEEKLY #14 tabs 06/17/23 06/17/23 Rx mcg (50,000 unit) tablet escitalopram oxalate 10 mg tablet 10 mg PO DAILY #90 tabs 08/12/23 08/12/23 Rx (Lexapro) prednisone 20 mg tablet 40 mg PO DAILY #10 tabs 08/12/23 08/12/23 Rx Sleep Procedure A full night polysomnogram using the [employer] multi-channel system recorded the standard physiologic parameters including EEG, EOG, submentalis EMG, anterior tibialis EMG, EKG, body position, nasal and oral airflow using nasal pressure sensor and thermistor.? Respiratory parameters of chest and abdominal movements were recorded with Respiratory Inductance Plethysmography belts. Oxygen saturation was recorded by pulse oximetry. Video monitoring was also performed. Sleep stages, periodic limb movements, and EEG arousals were scored in 30 second epochs according to the criteria of the AASM Scoring Manual. The Apnea-Hypopnea Index was calculated using CMS guidelines for definition of hypopnea with 4% O2 desaturations while scoring respiratory events. Sleep Architecture During the diagnostic portion of the study, the total recording time was 161.3 minutes. The total sleep time was 126.5 minutes. Sleep latency was 12.3 minutes.? REM sleep was not achieved during this portion of the study. Sleep Efficiency was 78.4%. The patient had 3 awakenings for an awakening index of 1.4. Wake after sleep onset time was 22.5 minutes. The patient spent 14.0 minutes, 11.1% of total sleep time in Stage N1. The patient spent 95.0 minutes, 75.1% in Stage N2. The patient spent 17.5 minutes, 13.8% in Stage N3. The patient spent 0.0 minutes, 0.0% in Stage REM sleep. ? At 12:22:36 AM the patient was placed on PAP treatment and was titrated at pressures ranging from 5 cm H20 up to 15 cm H20. During the treatment portion of the study, the total recording time was 352.5 minutes.? The total sleep time was 172.5 minutes. Sleep latency was 31.0 minutes. REM latency was 189.5 minutes. Sleep Efficiency was 48.9%. Wake after Sleep Onset time was 149.0 minutes. The patient spent 53.5 minutes, 31.0% of total sleep time in Stage N1. The patient spent 111.5 minutes, 64.6% in Stage N2. The patient spent 0.0 minutes, 0.0% in Stage N3. The patient spent 7.5 minutes, 4.3% in Stage REM. Respiratory Analysis During the diagnostic portion of the study, the patient had 60 hypopneas and 19 obstructive apneas for an overall Apnea Hypopnea Index of 37.5 events per hour. The REM Apnea Hypopnea Index was 0. The NREM Apnea Hypopnea Index was 37.5. The patient had a Central Apnea Hypopnea Index of 0. There was no evidence of Michel-Adamson Respirations. During the treatment portion of the study, the patient had 14 hypopneas, 1 obstructive apneas and 1 central apnea for an overall Apnea Hypopnea Index of 5.6 events per hour. The REM Apnea Hypopnea Index was 8.0. The NREM Apnea Hypopnea Index was 5.5. The patient had a Central Apnea Hypopnea Index of 0.3. There was no evidence of Michel-Adamson Respirations. The patient was started on CPAP 5 cm H2O and titrated to CPAP 15 cm H2O due to hypopneas. The patient was able to fall asleep starting on CPAP 5 cm H2O. The patient was able to achieve REM sleep starting on CPAP 14 cm H2O. The patient was able to achieve a residual AHI less than 5 with both NREM and REM sleep in the supine position on 14 cm H2O. On CPAP 14 cm H2O, the patient spent 19 minutes in NREM and 7.5 minutes in REM with 1 central apnea, resulting in an AHI of 2.3. On CPAP 15 cm H2O, the patient spent 31 minutes in NREM and 0 minutes in REM with no respiratory events, resulting in an AHI of 0.The patient had a sleep efficiency of 28.2% on 14 cm H2O and 78.5% on 15 cm H2O. Arousals During the diagnostic portion of the study, there were a total of 70 arousals for an arousal index of 33.2.? There were 31 respiratory arousals for an index of 14.7. There were no arousals due to periodic limb movements.? There were 12 isolated limb movement arousals for an index of 5.7. There were 27 spontaneous arousals for an index of 12.8. During the treatment portion of the study, there were a total of 119 arousals for an index of 41.4.? There were 29 respiratory arousals for an index of 10.1. There were 1 periodic limb movement arousals for an index of 0.3.? There were 21 isolated limb movement arousals for an index of 7.3. There were 68 spontaneous arousals for an index of 23.7. Periodic Limb Movements During the diagnostic portion of the study, the patient had 25 isolated limb movements with an index of 11.9. The patient had 4 periodic limb movements with an index of 1.9. The patient had a total of 29 limb movements with a total limb movement index of 13.8. During the treatment portion of the study, the patient had 38 isolated limb movements with an index of 13.2. The patient had 4 periodic limb movements with an index of 1.4. The patient had a total of 42 limb movements with a total limb movement index of 14.6. Oximetry Data During the diagnostic portion of the study, the patient had an average oxygen saturation of 96.1% in wake with a minimum oxygen saturation of 90% and a maximum oxygen saturation of 100%. The patient had an average oxygen saturation of 94.2% in sleep with a minimum oxygen saturation of 83.0% and a maximum oxygen saturation of 98.0%. The patient had 85 oxygen desaturations resulting in an Oxygen Desaturation Index of 40.3. The patient spent 1.8 minutes, 1.2% of total sleep time with an oxygen saturation less than 88%. During the treatment portion of the study, the patient had an average oxygen saturation of 97.4% in wake with a minimum oxygen saturation of 93.0% and a maximum oxygen saturation of 99.0%. The patient had an average oxygen saturation of 96.1% in sleep with a minimum oxygen saturation of 91.0% and a maximum oxygen saturation of 98.0%. The patient had 17 oxygen desaturations resulting in an Oxygen Desaturation Index of 5.9. The patient spent 0 minutes of total sleep time with an oxygen saturation less than 88%. Snoring Profile Continuously loud snoring was present during the baseline portion of the study. The snoring resolved when the patient was titrated to CPAP 13 cm H2O. Cardiac Profile The EKG lead showed normal sinus rhythm with occasional PVCs. There was a run of 5 PVCs on Epoch 923. During the diagnostic portion of the study, the average pulse rate was 70.6 bpm.? The minimum pulse rate was 58.0 bpm. The maximum pulse rate was 110.0 bpm. During the treatment portion of the study, the average pulse rate was 66.7 bpm.? The minimum pulse rate was 53.0 bpm. The maximum pulse rate was 108.0 bpm. EEG Profile No signs of seizure activity seen. Assessment and Plan Assessment and Plan (1) Obstructive sleep apnea: Code(s): G47.33 - Obstructive sleep apnea (adult) (pediatric) Status: Acute Assessment and Plan: In the diagnostic portion of the study, the patient had an overall AHI of 37.5 with desaturation down to 83%. This is consistent with severe sleep apnea. The patient was started on CPAP 5 cm H2O and titrated to CPAP 15 cm H2O. I recommend that the patient be prescribed Resmed AirSense 11 CPAP at 14 cm H2O, size small Resmed AirFit F30i mask, CPAP filters/tubing and heated humidity. This should be used with all episodes of sleep.? Compliance should be reviewed within 31-90 days of starting therapy for usage greater than 4 hours per night greater than 70% of the nights. The patient should be asked about symptoms such as?excessive daytime sleepiness, quality of sleep, decreased nocturia, increased?mental functioning such as memory, mood, and concentration. Data The data obtained during this sleep study is adequate for interpretation. Certification This sleep study has been reviewed by a board certified sleep medicine physician.
== END 2023-09-12 07:25 | disposition home or self-care (01) ==
PROVIDERS: PCP Family Medicine; Visit Provider Family Medicine
DX: G47.33 Obstructive sleep apnea (adult) (pediatric) (principal); G43.709 Chronic migraine without aura, not intractable, without status migrainosus; R00.0 Tachycardia, unspecified; I10 Essential (primary) hypertension
CPT/HCPCS: 95811

== ENCOUNTER 2023-10-02 12:35 | Outpatient (CLI) | payer BC, SELFPAY ==
--- NOTE | ~2023-10-02 | MR_ITS ---
MRI of the cervical spine Clinical History: Cervicalgia Technique: Axial T2-weighted and gradient images, and sagittal T1-weighted, T2-weighted, and STIR steve ges were acquired. Findings: There is mild reversal of the normal cervical lordosis. No acute fracture or subluxation se en. No suspicious bone marrow signal abnormality seen. At C2-C3, there is no disc bulge or herniation. No spinal canal stenosis, cord compression, or defini te neural foraminal narrowing. At C3-C4, there is mild disc osteophyte complex. There is mild canal stenosis without carla cord comp ression. Probable mild bilateral neural foraminal narrowing. At C4-C5, there is disc osteophyte complex with no stenosis and mild ventral cord compression. There is right neural foraminal narrowing. Left neural foramen probably preserved. At C5-C6, there is disc osteophyte complex. There is mild canal stenosis without carla cord compressi on. There is probable bilateral neural foraminal narrowing. At C6-C7, there is disc osteophyte convex. There is canal stenosis without carla cord compression. Th ere is probable bilateral neural foraminal narrowing, left worse than right. No abnormal signal in the spinal cord. Paravertebral soft tissues are unremarkable. Impression: [id number] degenerative spondylosis, as above, worst at C4-C5. Please see details above. Reviewed, dictated and finalized at [facility]. Impression: [id number]-[id number] degenerative spondylosis, as above, worst at C4-C5. Please see details above.
== END 2023-10-02 12:36 ==
LOC: MICIMG 12:37
PROVIDERS: PCP Family Medicine; Visit Provider Family Medicine
DX: M47.22 Other spondylosis with radiculopathy, cervical region (principal)
CPT/HCPCS: 72141

== ENCOUNTER 2023-12-11 13:27 | Outpatient (CLI) | payer BC, SELFPAY ==
--- NOTE | ~2023-12-11 | MR_ITS ---
EXAMINATION: MR shoulder RT wo con DATE: 12/11/2023 14:13 INDICATION: Right shoulder pain. TECHNIQUE: Magnetic resonance imaging (MRI) of the right shoulder was performed without intravenous c ontrast. Sequences included axial PD-weighted FS FSE, coronal oblique PD-weighted FS FSE and T2-weigh pratik FS FSE, and sagittal oblique T2-weighted FS FSE and T1-weighted FSE. COMPARISON: Right shoulder radiographs 08/14/2023 FINDINGS: Coracoacromial arch: The acromion undersurface is flat in morphology (type I). The acromioclavicular joint is normal. Ther e is mild subacromial/subdeltoid bursitis. Rotator cuff: There is mild supraspinatus and infraspinatus tendinopathy. Teres minor tendon is normal. Subscapular is tendon is normal. No tear. The rotator cuff muscle bellies are normal. Biceps tendon and glenoid labrum: Biceps tendon is in bicipital groove. Intra-articular biceps tendon is normal. The glenoid labrum is normal. Fluid: There is no glenohumeral joint effusion. Bones/cartilage: Glenoid cartilage is normal. Humeral head cartilage is normal. IMPRESSION: 1. Mild rotator cuff tendinopathy. No tear. 2. Mild subacromial/subdeltoid bursitis. Reviewed, dictated and finalized at location E.
== END 2023-12-11 13:28 ==
LOC: MICIMG 13:28
PROVIDERS: PCP Anesthesiology Pain Medicine; Visit Provider Family Medicine
DX: M25.511 Pain in right shoulder (principal); M75.51 Bursitis of right shoulder
CPT/HCPCS: 73221

== ENCOUNTER 2024-02-19 13:43 | Outpatient (CLI) | payer BC, SELFPAY ==
--- NOTE | ~2024-02-19 | MM_ITS ---
EXAMINATION: MM screening [facility] BI w lena HISTORY: Screening mammogram TECHNIQUE: Craniocaudal and mediolateral oblique 3-D tomosynthesis images were obtained and synthetic 2-D images were generated. CAD analysis was submitted and interpreted. COMPARISON: 11/22/2022, 08/14/2021, 06/18/2020, 05/31/2020 BREAST PARENCHYMAL COMPOSITION:Not Dense. There are scattered areas of fibroglandular density. FINDINGS: No suspicious mass, calcification, or architectural distortion are identified in either antonina ast to suggest malignancy. There has been no suspicious interval change. IMPRESSION: No mammographic evidence of malignancy. Recommend routine screening mammography in one year. BI-RADS Category 1: Negative Reviewed, dictated and finalized at location .
== END 2024-02-19 13:44 | disposition home or self-care (01) ==
LOC: ANHIMG 13:45
PROVIDERS: PCP Family Medicine; Visit Provider Obstetrics & Gynecology
DX: Z12.31 Encounter for screening mammogram for malignant neoplasm of breast (principal)
CPT/HCPCS: 77063; 77067

== ENCOUNTER 2024-08-12 14:57 | Outpatient (CLI) | payer BC, SELFPAY ==
--- NOTE | ~2024-08-12 | XR_ITS ---
3 VIEWS LUMBAR SPINE Ordering provider: Bruce Daniel MD History: . M54.50 - Low back pain, unspecified . Comparison: None. FINDINGS: VERTEBRAL BODIES: No visible fracture or subluxation. DISK SPACES: Narrowing of the disc L3-L4. SOFT TISSUES: Normal. IMPRESSION: No acute osseous abnormality lumbar spine. Degenerative disc disease at the level of L3-L4. Reviewed, dictated and finalized at location A.
== END 2024-08-12 14:58 | disposition home or self-care (01) ==
LOC: MICIMG 14:58
PROVIDERS: PCP Family Medicine; Visit Provider Family Medicine
DX: M51.369 Other intervertebral disc degeneration, lumbar region without mention of lumbar back pain or lower extremity pain (principal)
CPT/HCPCS: 72100

== ENCOUNTER 2025-01-10 09:36 | Emergency (ER) | payer BC, SELFPAY ==
[2025-01-10 09:45] VITALS: BP 159/96; PULSE 177; RESP 20; TEMP 36.8; O2SAT 98
--- NOTE | 2025-01-10 09:52 | ECG_ITS ---
Test Date: 2025-01-10 09:54:41 Measurements Intervals [place] Rate: 93 P: 67 FL: 144 QRS: 7 QRSD: 77 T: 42 QT: 331 QTc: 414 Interpretive Statements SINUS RHYTHM CONSIDER RIGHT VENTRICULAR CONDUCTION DELAY BASELINE ARTIFACT- I, II, AVR, AVL BORDERLINE ECG No previous ECG available for comparison Electronically Signed On 01-10-2025 10:29:46 CDT by Ronal Bartholomew D.O.
[2025-01-10 09:57] VITALS: PULSE 177
--- NOTE | 2025-01-10 09:57 | ED.ARRPALP ---
HPI - Arrhythmia/Palpitations General Chief Complaint: Arrhythmia/Palpitations Stated Complaint: abdominal pain. Hx UTI. Time Seen by Provider: 01/10/25 09:46 History of Present Illness HPI narrative: Pt developed palpitations and fast heart rate and broke out in sweat prior to arrival. Pt has history of palpitations oand svt and is on coreg and has had a neg cardiac cath and been on holter for this as well. Pt says her [facility] dye machine tender just left and she is searching for a new one. Pt complains also of urinary urgency and has recently been treated for uti and completed antibiotics. Related Data Home Medications ?Medication ?Instructions ?Recorded ?Confirmed ?Last Taken ?Type multivitamin 1 tablet PO DAILY 08/18/19 05/14/23 05/14/23 History certolizumab pegol 400 mg/2 mL See Rx Instructions .Route .COMPLEX 08/21/19 05/14/23 05/14/23 History (200 mg/mL x2) subcutaneous syringe kit (Cimzia) nortriptyline PO DAILY 10/07/23 Unknown History naltrexone 1.5 mg capsule (Naltrex) mg PO 01/27/24 Unknown History Allergies Allergy/AdvReac Type Severity Reaction Status Date / Time No Known Allergies Allergy Verified 01/10/25 09:58 Review of Systems Review of Systems: All systems reviewed & are unremarkable except as noted in HPI and below PMFSH Past Medical History Medical History Hypertension Obstructive sleep apnea Noted on sleep study in December 2012. Crohn's disease COVID-19 Hemochromatosis associated with mutation in HFE gene Poorly documented, patient denies Vitamin D deficiency Surgical History Surgical History History of wisdom tooth extraction History of nasal septoplasty For deviated septum. Family History Family History Mother Hypertension Father Patient's father is in good health Family history of lymphoma Family history of malignant neoplasm of urinary bladder Sibling Family history of gastrointestinal disorder Social History Social History Social History: Surrogate medical decision maker: Bk Guidry, spouse. Code status: Full code. Smoking status: Never smoker Second hand tobacco smoke exposure: No Alcohol intake: never Alcohol use details: 1 per month Substance use: never Substance use type: does not use Do You Feel Safe in your Home?: Yes Lack of Transportation: No Lack of Food: Never True Current Housing: I Have Housing Concerned About Future Housing: No Difficulty Paying Gas/Electric Bills: No Difficulty Paying for Meds: No Currently Unemployed: No Education: Bachelor's Degree Difficulty w/ Childcare or Family Care: No Living arrangements: with family Gender identity (if verbalized by the patient): Female Sexual Orientation (if Verbalized by the Patient): Straight or Heterosexual Spiritual care concerns: No Agree to blood products: Yes Exam Const: General: healthy appearing and no acute distress Nutritional Appearance: well nourished Orientation/consciousness: patient oriented x3 Limitations: no limitations HENMT: Mouth: Yes Normal oral and palatal mucosa present Eyes: EOM: EOMs intact bilaterally Neck: Neck: normal visual inspection Chest: Chest palpation & inspection: normal inspection of the chest Resp: Effort & Inspection: normal respiratory effort Auscultation: clear to auscultation bilaterally Cardio: Rate: tachycardic Rhythm: abnormal rhythm GI: Auscultation: normal bowel sounds Skin: General skin exam: normal color Rashes: no rashes Wounds: no wounds Neuro: General: patient oriented x3, moves all extremities and no focal motor deficits Speech: normal speech Extrem: General: normal to inspection and no clubbing, cyanosis or edema Psych: Mental Status: mental status grossly normal Affect: normal affect Attitude: cooperative Course Vital Signs Vital signs: Vital Signs Temperature 98.2 F 01/10/25 09:45 Pulse Rate 177 H 01/10/25 09:45 Respiratory Rate 20 01/10/25 09:45 Blood Pressure 159/96 H 01/10/25 09:45 Pulse Oximetry 98 01/10/25 09:45 Temperature 98.2 F 01/10/25 09:45 Pulse Rate 72 01/10/25 12:12 Respiratory Rate 16 01/10/25 12:12 Blood Pressure 130/88 01/10/25 12:12 Pulse Oximetry 98 01/10/25 12:12 MDM - Arrhythmia/Palpitations MDM Narrative Medical decision making narrative: Pt initial ekg was a fib with rvr but pt quicly converted to nsr with rate in 100's and then 90's and all symptoms resoved. will keep on monitor and get some labs to rule out electrolytes issues and trop to rule out cardiac injury. trop and lytes nl, bnp up slightly, ua ok. discussed with Maren Garza and pt is established with their group so they can see in follow up. she recommends no anticoagulation and to stop coreg and start metoprolol 25 xr. Lab Data 01/10/25 10:05 01/10/25 10:05 Labs: Lab Results 01/10/25 Range/Units 10:05 WBC 8.9 (4.5-10.0) K/mm3 RBC 4.65 (4.2-5.4) M/mm3 Hgb 12.9 (12.0-15.0) g/dL Hct 38.8 (37.0-47.0) % MCV 83.4 (80-100) fl MCH 27.7 (26-34) pg MCHC 33.2 (32-36) g/dl RDW 12.5 (11.5-14.5) % Plt Count 297 (150-375) k/mm3 MPV 9.8 (7.4-10.4) fl Immature Gran % (Auto) 0.3 (0-0.5) % Neut % (Auto) 72.0 (45.5-73.1) % Lymph % (Auto) 18.9 (18.3-44.2) % [place] % (Auto) 7.8 (2.6-8.5) % Eos % (Auto) 0.6 (0-4.4) % Baso % (Auto) 0.4 (0.2-1.2) % Lymph # (Auto) 1.69 (0.9-3.2) K/mm3 [place] # (Auto) 0.7 H (0.1-0.6) K/mm3 Eos # (Auto) 0.1 (0-0.3) K/mm3 Baso # (Auto) 0.0 (0.0-0.1) K/mm3 Abs Immat Gran (auto) 0.03 (0.00-0.031) K/mm3 Absolute Neuts (auto) 6.4 (1.3-6.7) K/mm3 Absolute Nucleated RBC 0.000 (0.0-0.012) K/mm3 Nucleated RBC % 0.0 (0.0-0.2) % PT 13.7 (11.1-14.7) Seconds INR 1.0 APTT 30.7 (22.3-36.8) Seconds Sodium 142 (137-145) mmol/L Potassium 3.9 (3.4-5.0) mmol/L Chloride 104 (98-107) mmol/L Carbon Dioxide 24 (22-30) mmol/L Anion Gap 14 H (4-12) mmol/L BUN 15 D (7-17) mg/dL Creatinine 0.96 (0.7-1.0) mg/dL Estim Creat Clear Calc 61 ml/min Estimated GFR > 60 (59 - ) Glucose 108 (65-110) mg/dL Calcium 9.9 (8.4-10.2) mg/dL Total Bilirubin 0.8 (0.2-1.3) mg/dL AST 32 (14-36) U/L ALT 24 (6-35) U/L Alkaline Phosphatase 102 (38-126) U/L Troponin I < 0.012 (0.000-0.034) ng/mL NT-Pro-B Natriuret Pep 625 H (19.9-100) pg/mL Total Protein 9.9 H (6.3-8.2) g/dL Albumin 4.9 (3.5-5.1) g/dL Urine Color Yellow (Yellow) Urine Appearance Clear (Clear) Urine pH 6.0 (5.0-9.0) Ur Specific Printer 1.009 (1.001-1.035) Urine Protein Negative (Negative) mg/dL Urine Glucose (UA) Negative (Negative) mg/dL Urine Ketones Negative (Negative) mg/dL Ur Blood (Man) Negative (Negative) Urine Nitrate Negative (Negative) Urine Bilirubin Negative (Negative) Urine Urobilinogen 0.2 (<2.0) mg/dL Leukocyte Esterase Rfl Negative (Negative) MIN/UL Discharge Plan Discharge Clinical Impression: Paroxysmal atrial fibrillation Patient Disposition: Home Condition: Improved Instructions: Antibiotic Form, A-fib (Atrial Fibrillation) (ED) Additional Instructions: stop coreg and start metoprolol Patient Language: Icelandic Prescriptions: New metoprolol succinate 25 mg capsule,sprinkle,ER 24hr 25 mg PO DAILY Qty: 30 0RF No Action Cimzia 400 mg/2 mL (200 mg/mL x 2) syringe kit See Rx Instructions .ROUTE .COMPLEX Rx Instructions: 2 mg SQ every 2 weeks multivitamin Tablet 1 tablet PO DAILY cholecalciferol (vitamin D3) 1,250 mcg (50,000 unit) tablet 1,250 mcg PO WEEKLY Qty: 14 1RF Patient Comments: Pt states she takes daily nortriptyline PO DAILY Naltrex 1.5 mg capsule PO amoxicillin-pot clavulanate 875-125 mg tablet 1 tablet PO BID Qty: 14 0RF carvedilol [Coreg] 6.25 mg Tablet 6.25 mg PO Q12HR Qty: 60 0RF trazodone 50 mg tablet 50 mg PO QHS PRN (Reason: insomnia) Qty: 90 1RF fluoxetine 20 mg capsule 20 mg PO DAILY Qty: 90 0RF Follow-up/Referrals: Bruce Daniel MD [Primary Care Provider] - Maren Garza APN-C [Advanced Practice Nurse] -
[2025-01-10 10:06] VITALS: PULSE 111
[2025-01-10 10:07] VITALS: BP 137/97; PULSE 120; RESP 20; O2SAT 99
--- NOTE | 2025-01-10 10:09 | ECG_ITS ---
Test Date: 2025-01-10 09:44:45 Measurements Intervals [place] Rate: 176 P: 0 ID: 0 QRS: 11 QRSD: 82 T: -23 QT: 273 QTc: 468 Interpretive Statements ATRIAL FIBRILLATION WITH RAPID VENTRICULAR RESPONSE WITH ABERRANT CONDUCTION OR VENTRICULAR PREMATURE COMPLEXES POSSIBLE RIGHT VENTRICULAR CONDUCTION DELAY BORDERLINE ST-T WAVE ABNORMALITY- ANTEROLAT/INF LEADS BASELINE ARTIFACT- I, II, III, AVR, AVL, AVF, V4-V6 ABNORMAL ECG No previous ECG available for comparison Electronically Signed On 01-10-2025 14:04:27 CDT by Ronal Bartholomew D.O.
--- OUTSIDE RECORDS SUMMARY | 2025-01-10 10:10 | XMS_ITS | Encounter Summary ---
Author Organization [facility] Address [address] [place] [address] Care Team Providers Care Pediatric Associate Name Role Phone Unavailable Primary Care Provider Unavailabl e Encounter Details Date Type Department Care Team (Late st Contact Info) Description 09/30/2022 Lab Requisition [facility] DermPath Lab [address] [place] [address] Aristides Thornton MD [address] [place] [address] Social History Tobacco Use Types Packs/Day Years Used Date Smoking Tobacco: Never Smokeless Tobacco: Never Comments No Sex and Gender Information Value Date Recorded Sex Assigned at Not on file Legal Sex Female 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 [employer] Gender Identity Not on file Sexual Orientation Not on file documented as of this encounter Plan of Treatment Not on file documented as of this encounter Procedures Procedure Name Priority Date/Time Associated Diagnosis Comments DERMATOPATHOLOGY Routine 09/29/2022 3:33 AM CDT documented in this encounter Results * DERMATOPATHOLOGY (09/29/2022 3:33 AM CDT) Case Report Dermatopathology Report Case: [id number] Authorizing Provider: Aristides Thornton MD Collected: 09/29/2022 03:33 AM Ordering Location: [facility] DermPath Lab Received: 09/30/2022 01:02 PM Pathologist: Annette Bourgeois MD Specimen: Skin, right superior inner thigh 3 10:08 AM CDT DERMATOPATHOLOGY LABORATORY Amended Report Modify the Clincal History to add cyst, scar, abscess 10:08 AM CDT DERMATOPATHOLOGY LABORATORY Final Diagnosis Specimen A. SKIN, right superior inner thigh: EPIDERMOID CYST (L72.0) DERMAL FIBROSIS (L90.5) 10:08 AM CDT DERMATOPATHOLOGY LABORATORY Amendment electronically signed by Davian High on 11/25/2022 at 1008 CDT at 1127 CDT Clinical History R/O Subcutaneous Mass in a patient with a history of Hidradenitis, Cyst, Scar, Abscess 10:08 AM CDT DERMATOPATHOLOGY LABORATORY Gross Description Specimen A: Received is one formalin filled container labeled with the patient's name and designated right superior inner thigh. The specimen consists of a punch excision measuring [id number], 2f5j6rp and [id number]. All pieces of tissue are inked and bisected. Jar 0. 10:08 AM CDT DERMATOPATHOLOGY LABORATORY Microscopic Description Specimen A. SKIN, right superior inner thigh: Within the dermis, there is a space lined by epithelium that resembles normal epidermis and the infundibular portion of the hair follicle. There is focal dermal fibrosis. 10:08 AM CDT DERMATOPATHOLOGY LABORATORY Disclaimer An external and internal positive and negative controls are appropriate for the histochemical, immunohistochemical and immunofluorescence stain(s) in this case (if any), except where stated explicitly. The performance characteristics of the stain(s) cited in this report were developed and its performance characteristic determined by the Dermatopathology Laboratory at [facility], directed by Dr. Renetta Jacobo. These tests need not be, and therefore are not, approved by the [place] Food and Drug Administration. The tests are used for clinical purposes. Billing Codes Specimen Charges Stain Charges 58677 1 10:08 AM CDT DERMATOPATHOLOGY LABORATORY Embedded Images 10:08 AM CDT DERMATOPATHOLOGY LABORATORY Pathology/Cytolo gy TISSUE SPECIMEN FROM SKIN / Unknown 09/29/2022 3:33 AM CDT 09/30/2022 1:02 PM CDT Aristides Thornton MD LAB - PATHOLOGY/CYTOLOGY ORD ERABLES Edited Result - Final DERMATOPATHOLOGY LABORATORY [facility] - Department of Dermatology [facility] [address] [place] [address], [address] [phone] documented in this encounter Visit Diagnoses Not on filedocumented in this encounter
--- OUTSIDE RECORDS SUMMARY | 2025-01-10 10:10 | XMS_ITS | Encounter Summary ---
Author Organization [facility] Address [address] [place] [address] Care Team Providers Care Optic Fibre Drawer Name Role Phone Bruce Daniel MD Primary Care Provider [phone] Encounter Details Date Type Department Care Team (Late st Contact Info) Description 01/01/2025 Results Follow-Up [facility] Con[facility]ient Care at [address] [address] Michelle Venegas NP [address] [place] [address] [address] [place] [address] Urine culture Urine, clean voided Social History Tobacco Use Types Packs/Day Years Used Date Smoking Tobacco: Never Smokeless Tobacco: Never Alcohol Use Standard Drinks/Week Comments Not Currently 0 (1 standard drink = 0.6 oz pur e alcohol) 1-2 every other week AUDIT-C Answer Date Recorded Q1: How often do you have a drink containing alc ohol? 2-4 times a month 09/29/2022 Average Number of Drinks Not on file 023 Frequency of Binge Drinking Not on file 06/2022 PHQ-2 Answer Date Recorded PHQ-2 Total Score (If total score is 3 or more points, staff should administer the PHQ-9) 0 09/22/2021 Personal Safety Answer Date Recorded Have you ever been in or are you currently in a harmful physical or emotional relationship or is someone making you feel afraid or unsafe? 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
--- OUTSIDE RECORDS SUMMARY | 2025-01-10 10:10 | XMS_ITS | Encounter Summary ---
Author Organization [facility] Address [address] [place] [address] Care Team Providers Care Wall Taper Helper Name Role Phone Unavailable Primary Care Provider Unavailabl e Encounter Details Date Type Department Care Team (Late st Contact Info) Description 04/29/2018 Lab Requisition [facility] Care DermPath Lab [address] [facility] [place] [address] Aristides Thornton MD [address] [place] [address] Social History Tobacco Use Types Packs/Day Years Used Date Smoking Tobacco: Never Comments Unknown Sex and Gender Information Value Date Recorded Sex Assigned at Not on file 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 Gender Identity Not on file Sexual Orientation Not on file documented as of this encounter Plan of Treatment Not on file documented as of this encounter Procedures Procedure Name Priority Date/Time Associated Diagnosis Comments DERMATOPATHOLOGY Routine 04/28/2018 12:0 0 AM MAINTENANCE HELPER UTILITY ENGINEER documented in this encounter Results * DERMATOPATHOLOGY (04/28/2018 12:00 AM MAINTENANCE HELPER UTILITY ENGINEER) Case Report Dermatopathology Report Case: [id number] Authorizing Provider: Aristides Thornton MD Collected: 04/28/2018 12:00 AM Pathologist: Neo Jacobo MD Received: 04/29/2018 01:57 PM Specimens: A) - Skin, left medial cheek B) - Skin, left distal ant thigh 8 2:37 PM MAINTENANCE HELPER UTILITY ENGINEER DERMATOPATHOLOGY LABORATORY Final Diagnosis Specimen A. SKIN, left medial cheek: BENIGN VERRUCOUS KERATOSIS, INFLAMED (L82.1) Specimen B. SKIN, left distal ant thigh: EPIDERMOID CYST (L72.0) 2:37 PM [facility] DERMATOPATHOLOGY LABORATORY at [address] MAINTENANCE HELPER UTILITY ENGINEER Clinical History A: R/O SCC. B: R/O cyst. 2:37 PM [facility] DERMATOPATHOLOGY LABORATORY Gross Description Specimen A: Received is one formalin filled container labeled with the patient's name and designated left medial cheek. The specimen consists of a shave biopsy measuring [id number]. Jar 0. Specimen B: Received is one formalin filled container labeled with the patient's name and designated left distal ant thigh. The specimen consists of a punch biopsy measuring [id number], bisected. Jar 0. 2:37 PM [facility] DERMATOPATHOLOGY LABORATORY Microscopic Description Specimen A. SKIN, left medial cheek: Sections show hyperkeratosis, papillomatosis, hypergranulosis, and acanthosis. Inflammatory cells are present within the dermis. These histological findings can be seen in a verruca vulgaris or a seborrheic keratosis. Specimen B. SKIN, left distal ant thigh: Within the dermis, there is a space lined by epithelium that resembles normal epidermis and the infundibular portion of the hair follicle. 2:37 PM [facility] DERMATOPATHOLOGY LABORATORY Disclaimer An external and internal positive and negative controls are appropriate for the histochemical, immunohistochemical and immunofluorescence stain(s) in this case (if any), except where stated explicitly. The performance characteristics of the stain(s) cited in this report were developed and its performance characteristic determined by the Dermatopathology Laboratory at [facility]. These tests need not be, and therefore are not, approved by the [place] Food and Drug Administration. The tests are used for clinical purposes. Billing Codes Specimen Charges Stain Charges 65414 44899 1 1 2:37 PM [facility] DERMATOPATHOLOGY LABORATORY Embedded Images 2:37 PM [facility] DERMATOPATHOLOGY LABORATORY Pathology/Cytology TISSUE SPECIMEN FROM SKIN / Unknown 04/28/2018 04/29/2018 1:57 PM MAINTENANCE HELPER UTILITY ENGINEER Miscellaneous samples (specimen) TISSUE SPECIMEN FROM SKIN / Unknown 04/28/2018 04/29/2018 1:57 PM MAINTENANCE HELPER UTILITY ENGINEER us Aristides Thornton MD LAB - PATHOLOGY/CYTOLOGY ORD ERABLES Final Result DERMATOPATHOLOGY LABORATORY [facility] - Department of Dermatology [address] [facility] 5th Floor Lab [address] [phone] documented in this encounter Visit Diagnoses Not on filedocumented in this encounter Additional Health Concerns Infection Onset Date Last Indicated Resolved Time COVID-19 Under Investigation 07/08/2020 07/08/2020 07/08/2020 10:19 AM MAINTENANCE HELPER UTILITY ENGINEER documented as of this encounter
--- OUTSIDE RECORDS SUMMARY | 2025-01-10 10:10 | XMS_ITS | Clinical Summary ---
Author Organization [facility] Address [address] [place] [address] Care Team Providers Care Production Superintendent Hydro Name Role Phone Unavailable Primary Care Provider Unavailabl e Source Comments [facility],non-owned Affiliates and Associated Physician Practices is amultiple site organization consisting of ambulatory clinics and hospital sitesin [place], [place], [place] and [place]. This disclosure is being madepursuant to the Care Everywhere program and may not contain all information available regarding this patient. Last updated 18.[facility] Allergies No known active allergies Medications * Be aware that medications may not be up to date on this document. Alwaysverify current medications with the patient. Certolizumab Pegol (CIMZIA SC) Active MERCAPTOPURINE PO Active LANSOPRAZOLE PO Acti ve Multiple Vitamin (MULTI-VITAMIN DAILY PO) Active VITAMIN D PO Active PROAIR RESPICLICK 108 (90 Base) MCG/ACT INHALE 2 PUFFS BY MOUTH EVERY 4 TO 6 HOURS NEEDED FOR SHORTNESS OF BREATH 0 Active budesonide-form oterol (SYMBICORT) 160-4.5 MCG/ACT inhaler Inhale 2 puffs by mouth 2 times daily Active cefdinir (OMNICEF) 300 MG capsule Take 300 mg by mouth every 12 hours 0 Active Active Problems Patient Care Coordination No te Formatting of this note migh t be different from the original. Dr. Jean Claude Valdez No additional problems on file Immunizations Immunization Administration Dates Next Due INFLUENZA VACCINE, QUADR. 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 Gender Identity Not on file Sexual Orientation Not on file Last Filed Vital Signs Vital Sign Reading Time Taken Comments Blood Pressure 124/76 11/28/2020 9:43 AM CDT Pulse 98 11/28/2020 9:43 AM CDT Temperature 36.6 C (97.9 F) 11/28/2020 9:43 AM CDT Respiratory Rate 16 11/28/2020 9:43 AM CDT Oxygen Saturation 99% 11/28/2020 9:43 AM CDT Inhaled Oxygen Concentration - - Weight 74.8 kg (165 lb) 11/28/2020 9:43 AM CDT Height 167.6 cm (5' 6) 11/28/2020 9:43 AM CDT Body Mass Index 26.63 11/28/2020 9:43 AM CDT Plan of Treatment Health Maintenance Due Date Last Done Comments COLOGUARD (AGES 45-75) - COLON CA SCREENING 1976 CT COLONOGRAPHY - COLON CA SCREENING 1976 FIT - COLON CA SCREENING 1976 FLEX SIG - COLON CA SCREENING 1976 LIPID TESTING 1976 MAMMOGRAM 1976 HIV SCREENING 1991 HEPATITIS C SCREENING 04/04/1994 DTAP/TDAP/TD VACCINES (1 - Tdap) 1995 HEPATITIS B VACCINE (1 of 3 - 19+ 3-dose series) 1995 PAP SMEAR 1997 SCREENING FOR DIABETES 11/25/2019 COVID-19 VACCINE (3 - season) 2024 09/13/2020, 08/23/2020 DEPRESSION SCREENING 06/01/2024 INFLUENZA VACCINE (#1) 2025 , 03/26/2019, 03/01/2018, Additional history exists ZOSTER VACCINE (1 of 2) 2026 COLON MONITORING 11/20/2030 11/20/2020 COLONOSCOPY - COLON CA SCREENING 11/20/2030 11/20/2020 Colorectal Cancer Screening 11/20/2030 HIB VACCINE Aged Out No longer eligi ble based on patient's age to complete this topic HPV VACCINE Aged Out No longer eligi ble based on patient's age to complete this topic MENINGOCOCCAL (Group B) VACCINE SHARED DECISION-MAKING Aged Out No longer eligible based on patient's age to complete this topic MENINGOCOCCAL GROUPS A/C/Y/W VACCINE Aged Out No longer eligible based on patient's age to complete this topic PNEUMOCOCCAL VACCINE Aged Out No long er eligible based on patient's age to complete this topic Insurance ANTHEM ANTHEM
--- OUTSIDE RECORDS SUMMARY | 2025-01-10 10:10 | XMS_ITS | Clinical Summary ---
Author Organization [facility] Address [address] [place] [address] Care Team Providers Care Pre Sales Systems Engineer Name Role Phone Bruce Daniel MD Primary Care Provider [phone] Allergies No known active allergies Medications multivitamin tabletIndicatio ns:Vitamin Deficiency Prevention Take 1 tablet by mouth daily 9 Active budesonide-form oteroL (SYMBICORT) 160-4.5 mcg/actuation inhaler Inhale 2 puffs 2 (two) times a day Rinse mouth with water after use. Do not swallow. Active traZODone (DESYREL) 50 mg tablet Take 1 tablet (50 mg total) by mouth nightly 4 Active cyclobenzaprine (FLEXERIL) 10 mg tablet 4 Active fluticasone propionate (FLONASE) 50 mcg/actuation nasal sprayIndication s:Acute pharyngitis, unspecified etiology,Neck pain Administer 2 sprays into each nostril daily for 14 days 1 each 4 Active Additional Information Patient not taking.Reported on 12/30/2024 naltrexone 1.5 mg capsule Take by mouth Activ e Cimzia 400 mg/2 mL (200 mg/mL x 2) syringe kit INJECT 1 SYRINGE UNDER THE SKIN EVERY 2 WEEKS 6 each 5 Active nortriptyline (PAMELOR) 10 mg capsule TAKE 1 CAPSULE NIGHTLY 90 capsule 3 5 Active sertraline (ZOLOFT) 100 mg tablet Take 1 tablet (100 mg total) by mouth daily 03/11/202 5 Active carvediloL (COREG) 6.25 mg tablet TAKE 1 TABLET TWICE DAILY WITH MEALS 180 tablet 3 5 Active FLUoxetine (PROzac) 20 mg capsule Take 1 capsule (20 mg total) by mouth daily 5 Active nitrofurantoin monohydrate (Macrobid) 100 mg capsuleIndicati ons:Urinary Tract/Genitouri nary Infection Take 1 capsule (100 mg total) by mouth 2 (two) times a day for 5 days 10 capsule 5 01/05/20 25 Active Problems Problem Noted Date Diagnosed Date Immunocompromised 02/12/2024 Irritable bowel syndrome 02/12/2024 Dizziness 06/05/2023 Chronic fatigue 06/05/2023 Shortness of breath 06/05/2023 LISA (obstructive sleep apnea) 04/02/2023 Other chest pain 04/02/2023 PSVT (paroxysmal supraventricular tachycardia) 1 06/02/2022 Primary hypertension 04/02/2023 Colon cancer screening 07/01/2022 Overview (07/01/2022): Added automatically from request for surgery [id number] Mild anemia 10/18/2021 Assessment & Plan (10/18/2021 5:08 PM CDT): This is both normocytic and intermittent. Given her irregular but heavy menses, we would suspect is from blood loss. She may wish to consider a progesterone only control to regulate her menstrual cycle. This may also be helpful with her headaches. Crohn's disease of both smal l and large intestine without complication 07/30/2018 Overview (07/30/2018): Added automatically from request for surgery [id number] Assessment & Plan (10/18/2021 5:08 PM CDT): The patient's colonoscopy last September and MR enterography last May were consistent with remission on her current drug regimen. We would like her to continue this for the foreseeable future. Dr. Rico would like to repeat a surveillance colonoscopy in September of 2022. We will continue to monitor labs quarterly Plan 1. Continue current medications and lab monitoring 2. Repeat colonoscopy in September 2022 3. Continue nortriptyline Psoriasis 11/26/2016 Folliculitis 11/26/2016 Lesion of stomach 11/26/2016 Bacterial skin infection 10/10/2016 High risk medication use 01/31/2015 Assessment & Plan (10/18/2021 5:07 PM CDT): The patient is eligible for a booster of the COVID vaccine. We would also recommend that she get vaccinated for Shingrix, Prevnar, and is eligible for a booster of Pneumovax later this year Resolved Problems Problem Noted Date Diagnosed Date Resolved Date Iron deficiency anemia due t o chronic blood loss 07/30/2018 10/12/2020 Overview (07/30/2018): Added automatically from request for surgery [id number] Crohn's disease 09/28/2010 02/04/2019 Encounters Date Type Department Care Team Description 01/04/2025 Orders Only [facility] [address] [place] [address] Unknown, Notinfile 01/01/2025 Results Follow-Up [facility] at [address] [address] Michelle Venegas, RICHARD Urine culture Urine, clean voided 12/30/2024 8:30 AM CDT Office Visit [facility] at [address] [address] Michelle Venegas, RICHARD Acute cystitis with hematuria (Primary Dx) 12/30/2024 12:25 AM CDT - 12/30/2024 11:59 PM CDT Hospital Encounter [facility] [address] [place] [address] Acute cystitis with hematuria Discharge Disposition: Discharge to home or self care 11/08/2024 Results Follow-Up [facility] [address] [place] [address] Allen Rico MD PhD CBC with auto differential, CRP (acute phase), Comprehensive metabolic panel, Additional followed-up results: 2 from Last 3 Months Immunizations Immunization Administration Dates Next Due Hep B Vaccine 12/12/2015,07/05/2015,06/04/2015 Influenza, Quadrivalent, Lana l Culture-based MDCK, Preservative Free, Antibiotic Free, Intramuscular 03/01/2018 Pfizer SARS-CoV-2 Monovalent Vaccination (12+ Yrs) PURPLE 09/13/2020,08/23/2020 Pneumococcal Polysaccharide PPV23 05/18/2015,08/2011 Surgical History Surgery Date Site/Laterality Comments NASAL SEPTUM SURGERY 06/01/1994 - 05/31/1995 LASIK WISDOM TOOTH EXTRACTION Medical History Medical History Date Comments Anemia Crohn's disease (HCC) dx 2006 GERD (gastroesophageal reflux disease) Chest pain Tachycardia Covid-19 Hypertension Sleep apnea Anxiety Asthma Migraines Autoimmune disease Crohn's Family History Medical History Relation Name Comments Bladder Cancer Father H Family histor y of malignant neoplasm of urinary bladder - (Added by TW Conv)/Family history of malignant neoplasm of urinary bladder - (Added by TW Conv) Cancer Father H Lymphoma Father H Family history of lymphoma - (Added by TW Conv) Stroke Father H Coronary artery disease Mother A Hypertension Mother A Family history of hypertension - (Added by TW Conv)/Family history of hypertension - (Added by TW Conv) Relation Name Status Comments Father H Mother A Social History Tobacco Use Types Packs/Day Years Used Date Smoking Tobacco: Never Smokeless Tobacco: Never Tobacco Cessation:Counseling Given: Not Answered Alcohol Use Standard Drinks/Week Comments Not Currently [...] on file Legal Sex 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 Gender Identity Not on file Sexual Orientation Not on file Obstetrics History Last Filed Vital Signs Vital Sign Reading Time Taken Comments Blood Pressure 150/91 12/30/2024 8:11 AM CDT Pulse 70 12/30/2024 8:11 AM CDT Temperature 36.6 C (97.9 F) 12/30/2024 8:11 AM CDT Respiratory Rate 18 12/30/2024 8:11 AM CDT Oxygen Saturation 99% 12/30/2024 8:11 AM CDT Inhaled Oxygen Concentration - - Weight 71.6 kg (157 lb 14.4 oz) 12/30/2024 8:11 AM CDT Height 167.6 cm (5' 5.98) 12/30/2024 8:11 AM CD T Body Mass Index 25.5 12/30/2024 8:11 AM CDT Plan of Treatment Health Maintenance Due Date Last Done Comments Breast Cancer Screening-Mammogram 1975 Cervical Cancer Screening 1975 Hepatitis C Screening 1975 DTaP/Tdap/Td Vaccine (1 - Tdap) 1987 Regular Well Visit/Exam 18-64 1994 Covid-19 Vaccine (3 - Pfizer risk series) 10/11/2020 09/13/2020, 08/23/2020 Depression Screening 09/22/2022 09/22/2021 Influenza Vaccine (#1) 2025 , 03/26/2019, 03/01/2018, Additional history exists Colon Cancer Screening-Colonoscopy 09/29/2032 09/29/2022, 11/20/2020, 09/20/2018, Additional history exists Pneumococcal vaccine <65 Aged Out 05/18/2015, 08/2011 No longer eligible based on patient's age to complete this topic Hepatitis B Screening Completed 11/04/2024 , 12/12/2015, 07/05/2015, Additional history exists Procedures Procedure Name Priority Date/Time Associated Diagnosis Comments SURGICAL PATHOLOGY Routine 01/04/2025 12 :00 AM CDT URINE CULTURE Routine 12/30/2024 8:25 AM CDT Acute cystitis with hematuria POCT URINALYSIS DIPSTICK Routine 12/30/2024 8:24 AM CDT Acute cystitis with hematuria TB TEST, QUANTIFERON GOLD Routine 11/04/2024 6:37 AM CDT Crohn's disease of both small and large intestine without complication (HCC) High risk medication use Routine health maintenance COMPREHENSIVE METABOLIC PANEL Routine 11/04/2024 6:37 AM CDT Crohn's disease of both small and large intestine without complication (HCC) High risk medication use Routine health maintenance CRP (ACUTE PHASE) Routine 11/04/2024 6:3 7 AM CDT Crohn's disease of both small and large intestine without complication (HCC) High risk medication use Routine health maintenance CBC WITH AUTO DIFFERENTIAL Routine 11/04/2024 6:37 AM CDT Crohn's disease of both small and large intestine without complication (HCC) High risk medication use Routine health maintenance HEPATITIS B SURFACE ANTIGEN Routine 11/04/2024 6:37 AM CDT Crohn's disease of both small and large intestine without complication (HCC) High risk medication use Routine health maintenance COLONOSCOPY 09/29/2022 8:52 AM CDT from Last 3 Months or Most Recently Relevant to Health Maintenance Results * Surgical pathology (01/04/2025 12:00 AM CDT) Skin, shave biopsy 01/04/2025 01/05/2025 8:16 AM CDT Narrative 01/09/2025 4:22 PM CDT EPIC results best viewed via link to PDF [facility] [address] [place] [address], [address], [place] [address] [email or web address] Note to Patients: This report may contain a detailed description of human tissue sent by a health care provider to the laboratory for pathologic evaluation. The content of this report is essential for diagnosis and may provide important critical findings. This information may be unfamiliar to patients to review without a medical professional present. It is advised that the patient review this report in the presence of a health care provider who can answer questions and explain the details. FINAL REPORT Patient Information: PATIENT NAME: ANGEL GUIDRY SEX: F : 1975 (Age: 49) Specimen Information: COLLECTED: 01/04/2025 RECEIVED: 01/05/2025 REPORTED: 01/09/2025 Submitting Physician Information: Maureen Genao, [facility], [address] [place] [address], DERMATOPATHOLOGY REPORT RESULTS DIAGNOSIS: A. SKIN,LEFT ANTERIOR PROXIMAL THIGH, SHAVE BIOPSY: SOLAR LENTIGO, FEATURES OF Note: There is no evidence of a discrete melanocytic neoplasm in the sections examined. B. SKIN, RIGHT POPLITEAL SKIN, SHAVE BIOPSY: BLUE NEVUS Note: MART-1 and SOX10 immunohistochemical stains were performed to assess the distribution of melanocytes in the lesion and confirms the histologic impression. C. SKIN, LEFT FOREHEAD, SHAVE BIOPSY: BLUE NEVUS Note: MART-1 and SOX10 immunohistochemical stains were performed to assess the distribution of melanocytes in the lesion and confirms the histologic impression. sxt/spng By this signature, I attest that the above diagnosis is based upon my personal examination of the slides(and/or other material indicated in the diagnosis). Harjinder Oakley MD, PhD Report Electronically Reviewed and Signed Out By Harjinder Oakley MD, PhD 01/09/2025 16:22:30 CLINICAL INFORMATION A. NEOPLASM OF UNCERTAIN BEHAVIOR VS MM B-C. NEOPLASM OF UNCERTAIN BEHAVIORS DYSPLASTIC NEVUS SPECIMEN DATA MICROSCOPIC DESCRIPTION: A. There is mild, reticulated epidermal hyperplasia and hyperpigmentation. (L81.4) B-C. There is a proliferation of pigmented, dendritic melanocytes between collagen bundles within the dermis. (D22.9) GROSS DESCRIPTION: A. Received in a formalin-containing bottle is a superficial fragment of mackenzie, finely scaling, and thickened skin measuring 0.5 by 0.4 by 0.2 cm. The surgical margin is inked blue. The specimen bears a brown, well-circumscribed, centrally located, flat area measuring 0.2 by 0.1 cm. The specimen is sectioned into 2 pieces and submitted entirely in a single cassette. Due to shrinkage, measurements may be different than those at the time of procedure. B. Received in a formalin-containing bottle is a superficial fragment of mackenzie, and finely scaling skin measuring 0.5 by 0.5 by 0.1 cm. The surgical margin is inked blue. The specimen bears a brown, well-circumscribed, slightly raised, centrally located area measuring 0.2 by 0.2 cm. The specimen is sectioned into 2 pieces and submitted entirely in a single cassette. Due to shrinkage, measurements may be different than those at the time of procedure. C. Received in a formalin-containing bottle is a superficial fragment of brown, finely scaling, and hair-bearing skin measuring 0.4 by 0.3 by 0.1 cm. The surgical margin is inked blue. The specimen is sectioned into 2 pieces and submitted entirely in a single cassette. Due to shrinkage, measurements may be different than those at time of procedure. [facility] ICD-9 ZSD.281 ZSD.1449 Clerical Data A; 15022 B; 26918, 69490-KW, 98152 IHC C; 92071, 35032-EN, 62734 IHC The characteristics of special, immunohistochemical, and immunofluorescence stains and in-situ hybridization tests performed by the [facility] were deemed acceptable in ongoing aerospace quality engineer measures and in compliance with regulations drawn from the Clinical Laboratory Improvement Act dv8953 (CLIA '88). Control reactions for all stains performed were deemed adequate and appropriate by a pathologist prior to evaluation of patient tissue. Some diagnoses were rendered with the assistance of laboratory-developed tests utilizing analyte-specific reagents; the performance characteristic of these tests were determined by [facility] and are not cleared or approved by the [place] Food an Drug administration. Laboratory developed test may only be performed in a facility that is certified by the [facility] as a high-complexity laboratory under CLIA '88. These tests are used for clinical purposes and are not investigational. us Notinfile Unknown LAB PATHOLOGY ORDERABLES Final Result * Urine culture Urine, clean voided (12/30/2024 8:25 AM CDT) Report Final Report: Less than 100,000 colonies/mL (clinically insignificant growth based on current clinical standards) Comment:Testing performed by : [facility], [address] [place]., [address] Organism (CLINICALLY INSIGNIFICANT GROWTH [facility] Urine, clean voided 12/30/2024 8:25 AM CDT 12/31/2024 12:24 AM CDT Narrative VINCE HODGES - 01/01/2025 6:19 AM CDT Testing performed by [facility] Microbiology Laboratory ([phone]) Michelle Venegas NP LAB MICROBIOLOGY - GENERAL ORD ERABLES Final Result [facility] [address] [place] [address] * (ABNORMAL) POCT urinalysis dipstick (12/30/2024 8:24 AM CDT) Pathologist [facility] Color, Urine, POC Danita Clarity, ur, POC Cloudy(A) Clear Glucose, ur, POC Negative Negative Bilirubin, ur, POC Negative Negative Ketones, ur, POC Negative Negative Specific [place], POC 1.030 1.003 - 1.030 Blood, ur, POC Moderate(A) Negative pH, ur, POC 7.0 5.0 - 8.0 Protein, ur, POC 30.(A) Negative Urobilinogen, urine, POC 0.2 0.2 - 1.0 mg/dL Nitrite, ur, POC Negative Negative Leukocytes, ur, POC Trace(A) Negative Lot Number [id number] Urine 12/30/2024 8:24 AM CDT Michlele Venegas NP POINT OF CARE TEST ORDERABLES Final Result * TB test, quantiferon gold (11/04/2024 6:37 AM CDT) Pathologist [facility] QuantiFERON(R)-T B Gold Plus, 1 Tube NEGATIVE NEGATIVE [facility] Comment: Negative test result. M. tuberculosis complex infection unlikely. NIL 0.02 IU/mL [facility] MITOGEN-NIL 4.97 IU/mL [facility] TB1-NIL <0.00 IU/mL [facility] TB2-NIL <0.00 IU/mL [facility] Comment: The Nil tube value reflects the background interferon gamma immune response of the patient's blood sample. This value has been subtracted from the patient's displayed TB and Mitogen results. Lower than expected results with the Mitogen tube prevent false-negative Quantiferon readings by detecting a patient with a potential immune suppressive condition and/or suboptimal pre-analytical specimen handling. The TB1 Antigen tube is coated with the M. tuberculosis-specific antigens designed to elicit responses from TB antigen primed CD4+ helper T-lymphocytes. The TB2 Antigen tube is coated with the M. tuberculosis-specific antigens designed to elicit responses from TB antigen primed CD4+ helper and CD8+ cytotoxic T-lymphocytes. For additional information, please refer to https://education.oLyfe/faq/DTD655 (This link is being provided for informational/ educational purposes only.) Blood 11/04/2024 6:37 AM CDT 11/04/2024 6:38 AM CDT Allen Rico MD PhD LAB BLOOD ORDERABLES Daphnie l Result [facility] [address] [place] [address] * (ABNORMAL) CBC with auto differential (11/04/2024 6:37 AM CDT) Pathologist [facility] WBC 8.4 3.8 - 10.8 Thousand/u L [facility] RBC, POC 4.09 3.80 - 5.10 Million/uL [facility] Hgb 11.0(L) 11.7 - 15.5 g/dL [facility] Hct 34.7(L) 35.0 - 45.0 % [facility] MCV 84.8 80.0 - 100.0 fL [facility] MCH 26.9(L) 27.0 - 33.0 pg [facility] MCHC 31.7(L) 32.0 - 36.0 g/dL [facility] Comment: For adults, a slight decrease in the calculated MCHC value (in the range of 30 to 32 g/dL) is most likely not clinically significant; however, it should be interpreted with caution in correlation with other red cell parameters and the patient's clinical condition. Rdw 12.9 11.0 - 15.0 % [facility] Platelets 245 140 - 400 Thousand/u L [facility] MPV 10.7 7.5 - 12.5 fL [facility] Neutrophils, abs 6,090 1,500 - 7,800 cells/uL [facility] Lymphocytes, abs 1,294 850 - 3,900 cells/uL [facility] Monocyte abs 865 200 - 950 cells/uL [facility] Eosinophils, abs 109 15 - 500 cells/uL [facility] Basophils, abs 42 0 - 200 cells/uL [facility] Neutrophils 72.5 % [facility] Lymphocyte pct 15.4 % [facility] Monocytes 10.3 % [facility] Eosinophils 1.3 % [facility] Basophils 0.5 % [facility] Blood 11/04/2024 6:37 AM CDT 11/04/2024 6:38 AM CDT Allen Rico MD PhD LAB BLOOD ORDERABLES Daphnie l Result [facility] [address] [place] [address] * Hepatitis B Surface Antigen Blood (11/04/2024 6:37 AM CDT) HepBsAg NON-REACTI VE NON-REACTI VE [facility] Comment: For additional information, please refer to http://education.SureDone.[employer]/faq/MJF142 (This link is being provided for informational/ educational purposes only.) Blood 11/04/2024 6:37 AM CDT 11/04/2024 6:38 AM CDT Allen Rico MD PhD LAB MICROBIOLOGY - GENERA L ORDERABLES Final Result Performing Organization Address City/[facility]/ZIP Co de Phone Number [facility] [address] [place] [address] * CRP (acute phase) (11/04/2024 6:37 AM CDT) Pathologist [facility] C-RP 6.3 <8.0 mg/L [facility] Blood 11/04/2024 6:37 AM CDT 11/04/2024 6:38 AM CDT Allen Rico MD PhD LAB BLOOD ORDERABLES Daphnie l Result Performing Organization Address [facility] Co de Phone Number [facility] [address] [place] [address] * (ABNORMAL) Comprehensive metabolic panel (11/04/2024 6:37 AM CDT) [facility] Glucose 90 65 - 99 mg/dL [facility] Comment: Fasting reference interval BUN 16 7 - 25 mg/dL [facility] Creatinine 0.75 0.50 - 0.99 mg/dL [facility] eGFR 98 > OR = 60 mL/min/1.7 3m2 [facility] BUN/creat ratio SEE NOTE: 6 - 22 (calc) [facility] Comment: Not Reported: BUN and Creatinine are within reference range. Sodium 137 135 - 146 mmol/L [facility] Potassium, pl 4.2 3.5 - 5.3 mmol/L [facility] Chloride 103 98 - 110 mmol/L [facility] CO2 27 20 - 32 mmol/L [facility] Calcium 9.1 8.6 - 10.2 mg/dL [facility] Protein, sr 7.9 6.1 - 8.1 g/dL [facility] Albumin 4.1 3.6 - 5.1 g/dL [facility] GLOBULIN 3.8(H) 1.9 - 3.7 g/dL (calc) [facility] Alb/glob ratio 1.1 1.0 - 2.5 (calc) [facility] Bilirubin, total 0.5 0.2 - 1.2 mg/dL [facility] Alk phos 91 31 - 125 U/L [facility] AST 23 10 - 35 U/L [facility] ALT (SGPT) 13 6 - 29 U/L [facility] Blood 11/04/2024 6:37 AM CDT 11/04/2024 6:38 AM CDT us Allen Rico MD PhD LAB BLOOD ORDERABLES Daphnie l Result [facility] [address] [place] [address] * COLONOSCOPY (09/29/2022 8:52 AM CDT) Anatomical Region Laterality Modality Other Narrative Procedure Note Allen Rico MD PhD - 09/29/2022 8:52 AM CDT ENDOSCOPY LAB Patient Name: Angle Guidry Procedure Date: 09/29/2022 8:52 AM Date of : 1975 Admit Type: Outpatient Age: 47 Gender: Female Attending MD: Allen Rico MD,PHD Room: [facility] ENDOSCOPY ROOM 03 Note Status: Finalized Procedure: Colonoscopy Indications: High risk colon cancer surveillance: Crohn'scolitis of 8 (or more) years duration with one-third (ormore) of the colon involved, Last colonoscopy: October2020 Providers: Allen Rico MD, PHD Referring MD: Allen Rico MD, PHD Medicines: Monitored Anesthesia Care Complications: No immediate complications. Estimated Blood Loss: Estimated blood loss: none. Procedure: Pre-Anesthesia Assessment: - Immediately prior to administration ofmedications, the patient was re-assessed for adequacy to receive sedatives. The benefits, risks and alternatives of theprocedure and sedation were discussed and informed consentwas obtained. All questions were answered. Please referto the signed informed consent document in the medical record. The scope was passed under direct vision.The [id number] was introduced through the anusand advanced to the terminal ileum. The colonoscopy was performed without difficulty. The patient tolerated the procedure well. The quality of the bowel preparation was excellent. The quality of the bowel preparation was evaluated using the BBPS (BostonBowel Preparation Scale) with scores of: Right Colon = 3, Transverse Colon = 3 and Left Colon = 3 (entiremucosa seen well with no residual staining, smallfragments of stool or opaque liquid). The total BBPS score equals 9. The bowel preparation used was Clenpiqvia split dose instruction. Bowel prep was administered using a split dose. Findings: The perianal and digital rectal examinations were normal. The terminal ileum appeared normal. Biopsies were taken with a cold forceps for histology. Normal mucosa was found in the entire colon. Biopsies were taken witha cold forceps for histology. The exam was otherwise without abnormality on direct and retroflexion views. Impression: - The examined portion of the ileum was normal. Biopsied. - Normal mucosa in the entire colon. Biopsied. - The examination was otherwise normal on directand retroflexion views. Recommendation: - Await pathology results. - If biopsy does not show disease activity, canstop 6MP. - Return to GI clinic as previously scheduled. Attending Participation: I personally performed the entire procedure. Electronically signed by Allen Rico MD. Allen Rico MD, PHD 09/29/2022 9:16:33 AM Number of Addenda: 0 Note Initiated On: 09/29/2022 8:52 AM Allen Rico MD PhD ENDOSCOPY PROCEDURES Daphnie l Result from Last 3 Months or Most Recently Relevant to Health Maintenance Insurance [employer] Advance Directives For more information, please contact: [phone] * Full Code (Latest Code Status on File) Date Activated Date Inactivated Comments 09/29/2022 7:29 AM 09/29/2022 2:18 PM * Full Code Date Activated Date Inactivated Comments 11/20/2020 2:53 PM 11/20/2020 9:28 PM * Full Code Date Activated Date Inactivated Comments 09/20/2018 8:19 AM 09/20/2018 2:46 PM * Full Code Date Activated Date Inactivated Comments 12/08/2017 7:45 AM 12/08/2017 11:29 AM Care Teams Pre Sales Systems Engineer Relationship Specialty Start Date End Date Bruce Daniel MD PCP - General Family Practice 02/02/23
--- OUTSIDE RECORDS SUMMARY | 2025-01-10 10:10 | XMS_ITS | Encounter Summary ---
Author Organization [facility] Healthcare Address [address] [place] [address] Care Team Providers Care Metal Box Maker Name Role Phone Bruce Daniel MD Primary Care Provider [phone] Encounter Details Date Type Department Care Team (Latest Contact Info) Description 11/08/2024 Results Follow-Up [facility] [address] [place] [address] Allen Rico MD PhD [address] [place], [place] [id number] CBC with auto differential, CRP (acute phase), Comprehensive metabolic panel, Additional followed-up results: 2 Social History Tobacco Use Types Packs/Day Years [...] on file Legal 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
--- OUTSIDE RECORDS SUMMARY | 2025-01-10 10:10 | XMS_ITS | Clinical Summary ---
Author Organization [facility] Address [address] [place] [address] Care Team Providers Care Solution Lead Name Role Phone Bruce Daniel MD Primary Care Provider [phone] Social History Tobacco Use Types Packs/Day Years Used Date Smoking Tobacco: Never Assessed Comments Unknown Sex and Gender Information Value Date Recorded Sex Assigned at Not on file Legal Sex Female 1:42 PM CDT Gender Identity Not on file Sexual Orientation Not on file Plan of Treatment Health Maintenance Due Date Last Done Comments Cervical Cancer Screening Pa p Smear (Age 30 to 64) Every 3 Years 1976 Colorectal Cancer Screening Colonoscopy (10 Years) 1976 Annual Physical 1979 Hepatitis C 1994 DTaP, Tdap and Td Vaccines ( 1 - Tdap) 1995 Cervical Cancer Screening Pa p with HPV Testing (Age 30 to 64) Every 5 Years 2006 Cervical Cancer Screening wi th HPV 2006 Mammogram Screening 2016 COVID-19 Vaccine (4 - 2023-2 5 season) 2024 03/29/2021, 09/13/2020, 08/23/2020 Pneumococcal Vaccine: Pediatrics (0 to 5 Years) and At-Risk Patients (6 to 49 Years) Aged Out 05/18/2015, 10/03/2011 No longer eligible based on patient's age to complete this topic Hepatitis B Vaccines Completed 12/12/2015, 07/05/2015, 06/04/2015 Meningococcal B Vaccine Aged Out No l onger eligible based on patient's age to complete this topic Meningococcal Vaccine Aged Out No carloz patti eligible based on patient's age to complete this topic RSV Immunizations Under 20 Months Aged Out No longer eligible b ased on patient's age to complete this topic Insurance [facility] Care Teams Solution Lead Relationship Specialty Start Date End Date Bruce Daniel MD [address] [place], [place] [id number] PCP - General FAMILY PRACTICE 12/25/23
--- OUTSIDE RECORDS SUMMARY | 2025-01-10 10:10 | XMS_ITS | Encounter Summary ---
Author Organization 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 Gender Identity Not on file Sexual Orientation Not on file documented as of this encounter Plan of Treatment Not on file documented as of this encounter Procedures Procedure Name Priority Date/Time Associated Diagnosis Comments SURGICAL PATHOLOGY Routine 01/04/2025 12 :00 AM CDT documented in this encounter Results * Surgical pathology (01/04/2025 12:00 AM CDT) Skin, shave biopsy 01/04/2025 01/05/2025 8:16 AM CDT Narrative 01/09/2025 4:22 PM CDT EPIC results best viewed via link to PDF [facility] [address] [place] [address], [address], [place] [address] [email or web address] Note to Patients: This report may contain [...] REPORTED: 01/09/2025 Submitting Physician Information: Maureen Genao, [facility] Skin Care Center [facility], [address] [place] [address], DERMATOPATHOLOGY REPORT RESULTS DIAGNOSIS: A. SKIN,LEFT ANTERIOR [...] different than those at time of procedure. edinson/mat ICD-9 ZSD.281 ZSD.1449 Clerical Data A; 86092 B; 42079, 64595-RX, 82753 IHC C; 09690, 01398-FZ, 84336 IHC The characteristics of special, immunohistochemical, and immunofluorescence stains and in-situ hybridization tests performed by the [facility] were deemed acceptable in ongoing advanced quality engineer measures and in compliance with regulations drawn from the Clinical Laboratory Improvement Act [id number] (CLIA '88). Control reactions for all stains performed were deemed adequate and appropriate by a pathologist prior to evaluation of patient tissue. Some diagnoses were rendered with the assistance of laboratory-developed tests utilizing analyte-specific reagents; the performance characteristic of these tests were determined by [facility] and are not cleared or approved by the US Food an Drug administration. Laboratory developed test may only be performed in a facility that is certified by the [facility] as a high-complexity laboratory under CLIA '88. These tests are used for clinical purposes and are not investigational. us Notinfile Unknown LAB PATHOLOGY ORDERABLES Final Result documented in this encounter Visit Diagnoses Not on filedocumented in this encounter Care Teams Custodial Maintenance Worker Relationship Specialty Start Date End Date Bruce Daniel MD PCP - General Family Practice 02/02/23 documented as of this encounter
[2025-01-10 10:32] LABS: Hematocrit 38.8 % (37.0-47.0); Hemoglobin 12.9 g/dL (12.0-15.0); Immature Granulocyte Percent A 0.3 % (0-0.5); Lymphocytes Absolute Auto 1.69 K/mm3 (0.9-3.2); Mean Corpuscular HGB Conc 33.2 g/dl (32-36); Mean Corpuscular Hemoglobin 27.7 pg (26-34); Mean Corpuscular Volume 83.4 fl (80-100); Nucleated Red Blood Cells Absolute Auto 0.000 K/mm3 (0.0-0.012); Nucleated Red Blood Cells Perc 0.0 % (0.0-0.2); Platelet Count Result 297 k/mm3 (150-375); Red Blood Count 4.65 M/mm3 (4.2-5.4); White Blood Count 8.9 K/mm3 (4.5-10.0)
[2025-01-10 10:36] LABS: Add Urine Microscopic? NO; Appearance Urine Clear (Clear); Glucose Urine UA Negative (Negative); Leukocyte Esterase Ur Negative LEU/UL (Negative); Nitrate Urine Negative (Negative); Specific Grav Ur 1.009 (1.001-1.035)
--- OUTSIDE RECORDS SUMMARY | 2025-01-10 10:41 | XMS_ITS | Encounter Summary ---
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
--- OUTSIDE RECORDS SUMMARY | 2025-01-10 10:41 | XMS_ITS | Clinical Summary ---
Author Organization [facility] Address [address] [place] [address] Care Team Providers Care Lozenge Dough Mixer Name Role Phone Bruce Daniel MD Primary Care Provider [phone] Social History Tobacco Use Types Packs/Day Years [...] patient's age to complete this topic Insurance [facility] Care Teams Lozenge Dough Mixer Relationship Specialty Start Date End Date Bruce Daniel MD [address] [place], [place] [id number] PCP - General FAMILY PRACTICE 12/25/23
--- OUTSIDE RECORDS SUMMARY | 2025-01-10 10:41 | XMS_ITS | Clinical Summary ---
Author Organization [facility] Address [address] [place] [address] Care Team Providers Care Managing Member Name Role Phone Unavailable Primary Care Provider Unavailabl e Source Comments [facility],non-owned Affiliates and Associated Physician Practices is amultiple site organization consisting of ambulatory clinics and hospital sitesin [place], [place], [place] and [place]. This disclosure is being madepursuant to the Care Everywhere program and may not contain all information available regarding this patient. 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
--- OUTSIDE RECORDS SUMMARY | 2025-01-10 10:41 | XMS_ITS | Encounter Summary ---
Author Organization 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 SKIN,LEFT ANTERIOR [...] edinson/mat ICD-9 ZSD.281 ZSD.1449 Clerical Data A; 51287 B; 08637, 22259-PL, 57438 IHC C; 03960, 98607-RP, 27687 IHC The characteristics of special, immunohistochemical, and immunofluorescence stains and in-situ hybridization tests performed by the [facility] were deemed acceptable in ongoing quality technician measures and in compliance with regulations drawn from the Clinical Laboratory Improvement Act ua8916 (CLIA '88). Control reactions for all stains performed were deemed adequate and appropriate by a pathologist prior to evaluation of patient tissue. Some diagnoses were rendered with the assistance of laboratory-developed tests utilizing analyte-specific reagents; the performance characteristic of these tests were determined by [facility] and are not cleared or approved by the US Food an Drug administration. Laboratory developed test may only be performed in a facility that is certified by the [facility] as a high-complexity laboratory under CLIA '88. These tests are used for clinical purposes and are not investigational. us Notinfile Unknown LAB PATHOLOGY ORDERABLES Final Result documented in this encounter Visit Diagnoses Not on filedocumented in this encounter Care Teams Rn Trauma Relationship Specialty Start Date End Date Bruce Daniel MD PCP - General Family Practice 02/02/23 documented as of this encounter
--- OUTSIDE RECORDS SUMMARY | 2025-01-10 10:41 | XMS_ITS | Encounter Summary ---
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
--- OUTSIDE RECORDS SUMMARY | 2025-01-10 10:41 | XMS_ITS | Clinical Summary ---
Author Organization [facility] Address [address] [place] [address] Care Team Providers Care Mammographer Name Role Phone Bruce Daniel MD Primary Care Provider [phone] Allergies No known active allergies Medications multivitamin [...] (07/01/2022): Added automatically from request for surgery [id number] Mild anemia 10/18/2021 Assessment & Plan (10/18/2021 [...] (07/30/2018): Added automatically from request for surgery [id number] Assessment & Plan (10/18/2021 5:08 PM CDT): [...] (07/30/2018): Added automatically from request for surgery [id number] Crohn's disease 09/28/2010 02/04/2019 Encounters Date Type Department Care Team Description 01/04/2025 Orders Only [facility] [address] [place] [address] Unknown, Notinfile 01/01/2025 Results Follow-Up [facility] Medical Group Convenient Care at [address] [address] Michelle Venegas, RICHARD Urine culture Urine, clean voided 12/30/2024 8:30 AM CDT Office Visit [facility] Medical Group Convenient Care at [address] [address] Michelle Venegas, RICHARD Acute cystitis with hematuria (Primary Dx) 12/30/2024 12:25 AM CDT - 12/30/2024 11:59 PM CDT Hospital Encounter [facility] [address] [place] [address] Acute cystitis with hematuria Discharge Disposition: Discharge to home or self care 11/08/2024 Results Follow-Up 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 SKIN,LEFT ANTERIOR [...] different than those at time of procedure. [facility] ICD-9 ZSD.281 ZSD.1449 Clerical Data A; 05446 B; 93872, 11536-ZN, 85792 IHC C; 71175, 07676-NX, 95808 IHC The characteristics of special, immunohistochemical, and immunofluorescence stains and in-situ hybridization tests performed by the [facility] were deemed acceptable in ongoing quality improvement specialist measures and in compliance with regulations drawn from the Clinical Laboratory Improvement Act nz8680 (CLIA '88). Control reactions for all stains performed were deemed adequate and appropriate by a pathologist prior to evaluation of patient tissue. Some diagnoses were rendered with the assistance of laboratory-developed tests utilizing analyte-specific reagents; the performance characteristic of these tests were determined by [facility] and are not cleared or approved by the US Food an Drug administration. Laboratory developed test may only be performed in a facility that is certified by the [facility] as a high-complexity laboratory under CLIA '88. These tests are used for clinical purposes and are not investigational. us Notinfile Unknown LAB PATHOLOGY ORDERABLES Final Result * Urine culture Urine, clean voided (12/30/2024 8:25 AM CDT) Report Final Report: Less than 100,000 colonies/mL (clinically insignificant growth based on current clinical standards) Comment:Testing performed by : [facility], [address] [facility] [place]., [address] Organism (CLINICALLY INSIGNIFICANT GROWTH [facility] Urine, clean voided 12/30/2024 8:25 AM CDT 12/31/2024 12:24 AM CDT Narrative VINCE HODGES - 01/01/2025 6:19 AM CDT Testing performed by [facility] Microbiology Laboratory ([phone]) Michelle Venegas NP LAB MICROBIOLOGY - GENERAL ORD ERABLES Final Result [facility] [address] [place] [address] * (ABNORMAL) POCT urinalysis dipstick (12/30/2024 8:24 AM CDT) Pathologist [facility] Color, Urine, POC Danita Clarity, ur, POC Cloudy(A) Clear Glucose, ur, POC Negative Negative Bilirubin, ur, POC Negative Negative Ketones, ur, POC Negative Negative Specific [place], POC 1.030 1.003 - 1.030 Blood, ur, POC Moderate(A) Negative pH, ur, POC 7.0 5.0 - 8.0 Protein, ur, POC 30.(A) Negative Urobilinogen, urine, POC 0.2 0.2 - 1.0 mg/dL Nitrite, ur, POC Negative Negative Leukocytes, ur, POC Trace(A) Negative Lot Number [id number] Urine 12/30/2024 8:24 AM CDT Michelle Venegas NP POINT OF CARE TEST ORDERABLES Final Result * TB test, quantiferon gold (11/04/2024 6:37 AM CDT) Pathologist [facility] QuantiFERON(R)-T B Gold Plus, 1 Tube NEGATIVE [...] T-lymphocytes. For additional information, please refer to https://education.[employer]/faq/ZCA507 (This link is being provided for informational/ educational purposes only.) Blood 11/04/2024 6:37 AM CDT 11/04/2024 6:38 AM CDT Allen Rico MD PhD LAB BLOOD ORDERABLES Daphnie l Result [facility] [address] [place] [address] * (ABNORMAL) CBC with auto differential (11/04/2024 6:37 AM CDT) Pathologist [facility] WBC 8.4 3.8 - 10.8 Thousand/u L [...] BLOOD ORDERABLES Daphnie l Result [facility] [address] [place] [address] * Hepatitis B Surface Antigen Blood (11/04/2024 6:37 AM CDT) HepBsAg NON-REACTI VE NON-REACTI VE [facility] Comment: For additional information, please refer to http://education.[employer]/faq/HOC426 (This link is being provided for informational/ educational purposes only.) Blood 11/04/2024 6:37 AM CDT 11/04/2024 6:38 AM CDT Allen Rico MD PhD LAB MICROBIOLOGY - GENERA L ORDERABLES Final Result Performing Organization Address City/[facility]/ZIP Co de Phone Number [facility] [address] [place] [address] * CRP (acute phase) (11/04/2024 6:37 AM CDT) Pathologist [facility] C-RP 6.3 <8.0 mg/L [facility] Blood 11/04/2024 6:37 AM CDT 11/04/2024 6:38 AM CDT Allen Rico MD PhD LAB BLOOD ORDERABLES Daphnie l Result Performing Organization Address [facility] Co de Phone Number [facility] [address] [place] [address] * (ABNORMAL) Comprehensive metabolic panel (11/04/2024 6:37 AM CDT) [facility] Glucose 90 65 - 99 mg/dL [facility] [...] BLOOD ORDERABLES Daphnie l Result [facility] [address] [place] [address] * COLONOSCOPY (09/29/2022 8:52 AM CDT) Anatomical Region Laterality Modality Other Narrative Procedure Note Allen Rico MD PhD - 09/29/2022 8:52 AM CDT ENDOSCOPY LAB Patient Name: Angel Guidry Procedure Date: 09/29/2022 8:52 AM Date of : 1975 Admit Type: Outpatient Age: 47 Gender: Female Attending MD: Allen Rico MD,PHD Room: [facility] ENDOSCOPY ROOM 03 Note Status: Finalized Procedure: [...] The scope was passed under direct vision.The [id number] was introduced through the anusand advanced to [...] Most Recently Relevant to Health Maintenance Insurance [employer] Advance Directives For more information, please contact: [phone] * Full Code (Latest Code Status on File) Date Activated Date Inactivated Comments 09/29/2022 7:29 AM 09/29/2022 2:18 PM * Full Code Date Activated Date Inactivated Comments 11/20/2020 2:53 PM 11/20/2020 9:28 PM * Full Code Date Activated Date Inactivated Comments 09/20/2018 8:19 AM 09/20/2018 2:46 PM * Full Code Date Activated Date Inactivated Comments 12/08/2017 7:45 AM 12/08/2017 11:29 AM Care Teams Mammographer Relationship Specialty Start Date End Date Bruce Daniel MD PCP - General Family Practice 02/02/23
--- OUTSIDE RECORDS SUMMARY | 2025-01-10 10:41 | XMS_ITS | Encounter Summary ---
Author Organization [facility] Address [address] [facility] [place] [address] Care Team Providers Care Cellular Plastics Cutter Name Role Phone Unavailable Primary Care Provider Unavailabl e Encounter Details Date Type Department Care Team (Late st Contact Info) Description 04/29/2018 Lab Requisition [facility] Care DermPath Lab [address] [facility], [place] [address] Aristides Thornton MD [address] [place] [address] Social History Tobacco Use Types Packs/Day Years Used Date Smoking Tobacco: Never Comments Unknown Sex and Gender Information Value Date Recorded Sex Assigned at Not on file 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 Gender Identity Not on file Sexual Orientation Not on file documented as of this encounter Plan of Treatment Not on file documented as of this encounter Procedures Procedure Name Priority Date/Time Associated Diagnosis Comments DERMATOPATHOLOGY Routine 04/28/2018 12:0 0 AM AUTOMOTIVE FINANCE MANAGER documented in this encounter Results * DERMATOPATHOLOGY (04/28/2018 12:00 AM AUTOMOTIVE FINANCE MANAGER) Case Report Dermatopathology Report Case: [id number] Authorizing Provider: Aristides Thornton MD Collected: 04/28/2018 12:00 AM Pathologist: Neo Jacobo MD Received: 04/29/2018 01:57 PM Specimens: A) - Skin, left medial cheek B) - Skin, left distal ant thigh 8 2:37 PM AUTOMOTIVE FINANCE MANAGER DERMATOPATHOLOGY LABORATORY Final Diagnosis Specimen A. SKIN, left medial cheek: BENIGN VERRUCOUS KERATOSIS, INFLAMED (L82.1) Specimen B. SKIN, left distal ant thigh: EPIDERMOID CYST (L72.0) 2:37 PM [facility] DERMATOPATHOLOGY LABORATORY at [address] AUTOMOTIVE FINANCE MANAGER Clinical History A: R/O SCC. B: R/O cyst. 2:37 PM [facility] DERMATOPATHOLOGY LABORATORY Gross Description Specimen A: Received is one formalin filled container labeled with the patient's name and designated left medial cheek. The specimen consists of a shave biopsy measuring [id number]. Jar 0. Specimen B: Received is one formalin filled container labeled with the patient's name and designated left distal ant thigh. The specimen consists of a punch biopsy measuring [id number], bisected. Jar 0. 2:37 PM [facility] DERMATOPATHOLOGY LABORATORY Microscopic Description Specimen A. SKIN, [...] portion of the hair follicle. 2:37 PM [facility] DERMATOPATHOLOGY LABORATORY Disclaimer An external and internal positive and negative controls are appropriate for the histochemical, immunohistochemical and immunofluorescence stain(s) in this case (if any), except where stated explicitly. The performance characteristics of the stain(s) cited in this report were developed and its performance characteristic determined by the Dermatopathology Laboratory at [facility]. These tests need not be, and therefore are not, approved by the [place] Food and Drug Administration. The tests are used for clinical purposes. Billing Codes Specimen Charges Stain Charges 91059 08419 1 1 2:37 PM [facility] DERMATOPATHOLOGY LABORATORY Embedded Images 2:37 PM [facility] DERMATOPATHOLOGY LABORATORY Pathology/Cytology TISSUE SPECIMEN FROM SKIN / Unknown 04/28/2018 04/29/2018 1:57 PM AUTOMOTIVE FINANCE MANAGER Miscellaneous samples (specimen) TISSUE SPECIMEN FROM SKIN / Unknown 04/28/2018 04/29/2018 1:57 PM AUTOMOTIVE FINANCE MANAGER us Aristides Thornton MD LAB - PATHOLOGY/CYTOLOGY ORD ERABLES Final Result DERMATOPATHOLOGY LABORATORY [facility] - Department of Dermatology [address] [facility] 5th Floor Lab B [address] [phone] documented in this encounter Visit Diagnoses Not on filedocumented in this encounter Additional Health Concerns Infection Onset Date Last Indicated Resolved Time COVID-19 Under Investigation 07/08/2020 07/08/2020 07/08/2020 10:19 AM AUTOMOTIVE FINANCE MANAGER documented as of this encounter
--- OUTSIDE RECORDS SUMMARY | 2025-01-10 10:41 | XMS_ITS | Encounter Summary ---
Author Organization [facility] Address [address] [facility] [place] [address] Care Team Providers Care Snuff Container Inspector Name Role Phone Unavailable Primary Care Provider Unavailabl e Encounter Details Date Type Department Care Team (Late st Contact Info) Description 09/30/2022 Lab Requisition [facility] DermPath Lab [address] [facility] [place] [address] Aristides Thornton MD [address] [place] [address] Social History Tobacco Use Types Packs/Day Years Used Date Smoking Tobacco: Never Smokeless Tobacco: Never Comments No Sex and Gender Information Value Date Recorded Sex Assigned at Not on file 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 Gender Identity Not on file Sexual Orientation Not on file documented as of this encounter Plan of Treatment Not on file documented as of this encounter Procedures Procedure Name Priority Date/Time Associated Diagnosis Comments DERMATOPATHOLOGY Routine 09/29/2022 3:33 AM CDT documented in this encounter Results * DERMATOPATHOLOGY (09/29/2022 3:33 AM CDT) Case Report Dermatopathology Report Case: [id number] Authorizing Provider: Aristides Thornton MD Collected: 09/29/2022 03:33 AM Ordering Location: [facility] DermPath Lab Received: 09/30/2022 01:02 PM [...] specimen consists of a punch excision measuring [id number], 9i3l9ps and 1x4u08yt. All pieces of tissue are inked and [...] characteristic determined by the Dermatopathology Laboratory at [facility], directed by Dr. Renetta Jacobo. These tests need not be, and therefore are not, approved by the [place] Food and Drug Administration. The tests are used for clinical purposes. Billing Codes Specimen Charges Stain Charges 00495 1 10:08 AM CDT DERMATOPATHOLOGY LABORATORY Embedded Images 10:08 AM CDT DERMATOPATHOLOGY LABORATORY Pathology/Cytolo gy TISSUE SPECIMEN FROM SKIN / Unknown 09/29/2022 3:33 AM CDT 09/30/2022 1:02 PM CDT Aristides Thornton MD LAB - PATHOLOGY/CYTOLOGY ORD ERABLES Edited Result - Final DERMATOPATHOLOGY LABORATORY [facility] - Department of Dermatology [facility] Specialized Medicine [address] [place] [address], [address] Floor [address] [phone] documented in this encounter Visit Diagnoses Not on filedocumented in this encounter
[2025-01-10 10:45] LABS: Alanine Aminotransferase 24 U/L (6-35); Albumin Level 4.9 g/dL (3.5-5.1); Alkaline Phosphatase 102 U/L (38-126); Anion Gap 14 mmol/L (4-12); Aspartate Amino Transferase 32 U/L (14-36); Bilirubin,Total 0.8 mg/dL (0.2-1.3); Blood Urea Nitrogen 15 mg/dL (7-17); Calcium 9.9 mg/dL (8.4-10.2); Carbon Dioxide 24 mmol/L (22-30); Chloride 104 mmol/L (98-107); Estimated CRCL calculation 61 ml/min; Estimated Glomerular Filt Rate > 60; Glucose 108 mg/dL (65-110); Potassium 3.9 mmol/L (3.4-5.0); Sodium 142 mmol/L (137-145); Total Protein 9.9 g/dL (6.3-8.2)
[2025-01-10 10:48] VITALS: PULSE 90
[2025-01-10 10:53] LABS: INR 1.0; Prothrombin Time 13.7 Seconds (11.1-14.7)
[2025-01-10 10:54] LABS: Partial Thromboplastin Time 30.7 Seconds (22.3-36.8)
[2025-01-10 10:55] LABS: NT Pro B Type Natriuretic Pept 625 pg/mL (19.9-100); Troponin I < 0.012 ng/mL (0.000-0.034)
[2025-01-10 12:12] VITALS: BP 130/88; PULSE 72; RESP 16; O2SAT 98
== END 2025-01-10 12:49 | disposition home or self-care (01) ==
PROVIDERS: Emergency Provider Emergency Medicine; PCP Family Medicine
DX: I48.0 Paroxysmal atrial fibrillation (principal); I10 Essential (primary) hypertension; J44.9 Chronic obstructive pulmonary disease, unspecified
CPT/HCPCS: 36415; 80053; 81003; 83880; 84484; 85025; 85610; 85730; 93005; 99284

== ENCOUNTER 2025-01-16 10:24 | Outpatient (CLI) | payer BC, SELFPAY ==
--- NOTE | ~2025-01-16 | XR_ITS ---
Supine and upright views of the abdomen Clinical history: Abdominal pain Findings: Bowel gas pattern is nonspecific. No evidence for obstruction or free air. No abnormal mass lesion or calcification is seen. Osseous structures are intact. Impression: No significant abnormality is seen. Reviewed, dictated and finalized at [facility]. Impression: No significant abnormality is seen.
--- NOTE | ~2025-01-16 | CT_ITS ---
EXAM: CT abdomen pelvis wo con - 01/16/2025 10:30 CDT History: 49 years old Female with R10.31 - Right lower quadrant pain TECHNIQUE: Multidetector CT of the abdomen and pelvis without contrast. Coronal and sagittal reforma ts were also provided for review. Automatic exposure control was used for this study. COMPARISON: None Available. FINDINGS: VISUALIZED CHEST: Visualized lungs are clear. ABDOMEN and PELVIS: LIVER: Simple cyst in hepatic dome. GALLBLADDER: Cholelithiasis. BILE DUCTS: No dilatation. SPLEEN: Within normal limits. PANCREAS: Within normal limits. ADRENAL GLANDS: Within normal limits. KIDNEYS and URETERS: No hydronephrosis or hydroureter. No nephroureterolithiasis. URINARY BLADDER: Within normal limits. STOMACH and BOWEL: No abnormal bowel wall thickening. No obstruction. REPRODUCTIVE ORGANS: Within normal limits. MESENTERY/PERITONEAL CAVITY: No free fluid or pneumoperitoneum. LYMPH NODES: No abdominal or pelvic lymphadenopathy. ABDOMINAL WALL: Focal area of fat stranding and skin thickening in the right lower quadrant may repre sent cellulitis and focal infection of subcutaneous tissue. Findings are concerning for cellulitis. C linical correlation is recommended. VASCULATURE: Within normal limits. MUSCULOSKELETAL: Within normal limits. IMPRESSION: Focal area of fat stranding and skin thickening in the right lower quadrant may represent cellulitis and focal infection of subcutaneous tissue. Findings are concerning for cellulitis. Clinical correlat ion is recommended. Reviewed, dictated and finalized at location A. IMPRESSION: Focal area of fat stranding and skin thickening in the right lower quadrant may represent cellulitis and focal infection of subcutaneous tissue. Findings are concerning for cellulitis. Clinical correlation is recommended.
--- OUTSIDE RECORDS SUMMARY | 2025-01-16 11:18 | XMS_ITS | Clinical Summary ---
Author Organization [facility] Address [address] [place] [address] Care Team Providers Care Paper Cone Machine Tender Name Role Phone Bruce Daniel MD Primary Care Provider [phone] Allergies No known active allergies Medications multivitamin [...] (07/01/2022): Added automatically from request for surgery [id number] Mild anemia 10/18/2021 Assessment & Plan (10/18/2021 [...] (07/30/2018): Added automatically from request for surgery [id number] Assessment & Plan (10/18/2021 5:08 PM CDT): [...] (07/30/2018): Added automatically from request for surgery [id number] Crohn's disease 09/28/2010 02/04/2019 Encounters Date Type Department Care Team Description 01/04/2025 Orders Only [facility] [address] [place] [address] Unknown, Notinfile 01/01/2025 Results Follow-Up [facility] Con[facility]ient Care at [address] [address] Michelle Venegas, RICHARD Urine culture Urine, clean voided 12/30/2024 8:30 AM CDT Office Visit [facility] at [address] [address] Michelle Venegas, RICHARD Acute cystitis with hematuria (Primary Dx) 12/30/2024 12:25 AM CDT - 12/30/2024 11:59 PM CDT Hospital Encounter [facility] [address] [place] [address] Acute cystitis with hematuria Discharge Disposition: Discharge to home or self care 11/08/2024 Results Follow-Up [facility] Endoscopy [address] [place] [address] Allen Rico MD PhD CBC with auto [...] on file 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 SKIN,LEFT ANTERIOR [...] different than those at time of procedure. [facility] ICD-9 ZSD.281 ZSD.1449 Clerical Data A; 63242 B; 07954, 98227-JC, 66403 IHC C; 01454, 83069-BF, 12496 IHC The characteristics of special, immunohistochemical, and immunofluorescence stains and in-situ hybridization tests performed by the [facility] were deemed acceptable in ongoing quality control checker measures and in compliance with regulations drawn from the Clinical Laboratory Improvement Act uq4304 (CLIA '88). Control reactions for all stains performed were deemed adequate and appropriate by a pathologist prior to evaluation of patient tissue. Some diagnoses were rendered with the assistance of laboratory-developed tests utilizing analyte-specific reagents; the performance characteristic of these tests were determined by [facility] and are not cleared or approved by the [place] Food an Drug administration. Laboratory developed test may only be performed in a facility that is certified by the [facility] as a high-complexity laboratory under CLIA '88. These tests are used for clinical purposes and are not investigational. us Notinfile Unknown LAB PATHOLOGY ORDERABLES Final Result * Urine culture Urine, clean voided (12/30/2024 8:25 AM CDT) Report Final Report: Less than 100,000 colonies/mL (clinically insignificant growth based on current clinical standards) Comment:Testing performed by : [facility], [address] [place]., [address] Organism (CLINICALLY INSIGNIFICANT GROWTH [facility] Urine, clean voided 12/30/2024 8:25 AM CDT 12/31/2024 12:24 AM CDT Narrative VINCE HODGES - 01/01/2025 6:19 AM CDT Testing performed by [facility] Microbiology Laboratory ([phone]) Michelle Venegas NP LAB MICROBIOLOGY - GENERAL ORD ERABLES Final Result [facility] [address] [address] Department [place] [address] * (ABNORMAL) POCT urinalysis dipstick (12/30/2024 8:24 AM CDT) Pathologist [facility] Color, Urine, POC Danita Clarity, ur, POC Cloudy(A) Clear Glucose, ur, POC Negative Negative Bilirubin, ur, POC Negative Negative Ketones, ur, POC Negative Negative Specific [place], POC 1.030 1.003 - 1.030 Blood, ur, POC Moderate(A) Negative pH, ur, POC 7.0 5.0 - 8.0 Protein, ur, POC 30.(A) Negative Urobilinogen, urine, POC 0.2 0.2 - 1.0 mg/dL Nitrite, ur, POC Negative Negative Leukocytes, ur, POC Trace(A) Negative Lot Number [id number] Urine 12/30/2024 8:24 AM CDT Michelle Venegas NP POINT OF CARE TEST ORDERABLES Final Result * TB test, quantiferon gold (11/04/2024 6:37 AM CDT) Pathologist [facility] QuantiFERON(R)-T B Gold Plus, 1 Tube NEGATIVE [...] T-lymphocytes. For additional information, please refer to https://education.mobicanvas/faq/DVD839 (This link is being provided for informational/ educational purposes only.) Blood 11/04/2024 6:37 AM CDT 11/04/2024 6:38 AM CDT us Allen Rico MD PhD LAB BLOOD ORDERABLES Daphnie l Result [facility] [address] [place] [address] * (ABNORMAL) CBC with auto differential (11/04/2024 6:37 AM CDT) WBC 8.4 3.8 - 10.8 Thousand/u L [...] BLOOD ORDERABLES Daphnie l Result [facility] [address] [place] [address] * Hepatitis B Surface Antigen Blood (11/04/2024 6:37 AM CDT) HepBsAg NON-REACTI VE NON-REACTI VE [facility] Comment: For additional information, please refer to http://education.[employer]/faq/ZTY966 (This link is being provided for informational/ educational purposes only.) Blood 11/04/2024 6:37 AM CDT 11/04/2024 6:38 AM CDT Allen Rico MD PhD LAB MICROBIOLOGY - GENERA L ORDERABLES Final Result Performing Organization Address City/[facility]/ZIP Co de Phone Number [email or web address] [address] [place] [address] * CRP (acute phase) (11/04/2024 6:37 AM CDT) C-RP 6.3 <8.0 mg/L [facility] Blood 11/04/2024 6:37 AM CDT 11/04/2024 6:38 AM CDT Allen Rico MD PhD LAB BLOOD ORDERABLES Daphnie l Result Performing Organization Address [facility] Co de Phone Number [email or web address] [address] [place] [address] * (ABNORMAL) Comprehensive metabolic panel (11/04/2024 6:37 AM CDT) Pathologist [facility] Glucose 90 65 - 99 mg/dL [facility] [...] BLOOD ORDERABLES Daphnie l Result [facility] [address] [facility] [place] [address] * COLONOSCOPY (09/29/2022 8:52 AM CDT) Anatomical Region Laterality Modality Other Narrative Procedure Note Allen Rico MD PhD - 09/29/2022 8:52 AM CDT ENDOSCOPY LAB Patient Name: Angel Guidry Procedure Date: 09/29/2022 8:52 AM Date of : 1975 Admit Type: Outpatient Age: 47 Gender: Female Attending MD: Allen Rico MD,PHD Room: [facility] ENDOSCOPY ROOM 03 Note Status: Finalized [...] The scope was passed under direct vision.The [id number] was introduced through the anusand advanced to [...] Most Recently Relevant to Health Maintenance Insurance [employer] O[employer] Advance Directives For more information, please contact: [phone] * Full Code (Latest Code Status on File) Date Activated Date Inactivated Comments 09/29/2022 7:29 AM 09/29/2022 2:18 PM * Full Code Date Activated Date Inactivated Comments 11/20/2020 2:53 PM 11/20/2020 9:28 PM * Full Code Date Activated Date Inactivated Comments 09/20/2018 8:19 AM 09/20/2018 2:46 PM * Full Code Date Activated Date Inactivated Comments 12/08/2017 7:45 AM 12/08/2017 11:29 AM Care Teams Paper Cone Machine Tender Relationship Specialty Start Date End Date Bruce Daniel MD PCP - General Family Practice 02/02/23
--- OUTSIDE RECORDS SUMMARY | 2025-01-16 11:18 | XMS_ITS | Encounter Summary ---
Author Organization [facility] Address [address] [facility] [place] [address] Care Team Providers Care Instructional Consultant Name Role Phone Unavailable Primary Care Provider Unavailabl e Encounter Details Date Type Department Care Team (Late st Contact Info) Description 04/29/2018 Lab Requisition [facility] Care DermPath Lab [address] [facility] [place] [address] Aristides Thornton MD [address] [place] [address] Social History Tobacco Use Types Packs/Day Years Used Date Smoking Tobacco: Never Comments Unknown Sex and Gender Information Value Date Recorded Sex Assigned at Not on file Legal Sex Female 6:35 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 Gender Identity Not on file Sexual Orientation Not on file documented as of this encounter Plan of Treatment Not on file documented as of this encounter Procedures Procedure Name Priority Date/Time Associated Diagnosis Comments DERMATOPATHOLOGY Routine 04/28/2018 12:0 0 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 documented in this encounter Results * DERMATOPATHOLOGY (04/28/2018 12:00 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) Case Report Dermatopathology Report Case: [id number] Authorizing Provider: Aristides Thornton MD Collected: 04/28/2018 12:00 AM Pathologist: Neo Jacobo MD Received: 04/29/2018 01:57 PM Specimens: A) - Skin, left medial cheek B) - Skin, left distal ant thigh 8 2:37 PM KICK BOXER DERMATOPATHOLOGY LABORATORY Final Diagnosis Specimen A. SKIN, left medial cheek: BENIGN VERRUCOUS KERATOSIS, INFLAMED (L82.1) Specimen B. SKIN, left distal ant thigh: EPIDERMOID CYST (L72.0) 2:37 PM [facility] DERMATOPATHOLOGY LABORATORY at [address] KICK BOXER Clinical History A: R/O SCC. B: R/O cyst. 2:37 PM [facility] DERMATOPATHOLOGY LABORATORY Gross Description Specimen A: Received is one formalin filled container labeled with the patient's name and designated left medial cheek. The specimen consists of a shave biopsy measuring 7h1t3un. Jar 0. Specimen B: Received is one formalin filled container labeled with the patient's name and designated left distal ant thigh. The specimen consists of a punch biopsy measuring 2s4e9aa, bisected. Jar 0. 2:37 PM [facility] DERMATOPATHOLOGY LABORATORY Microscopic Description Specimen A. SKIN, [...] portion of the hair follicle. 2:37 PM [facility] DERMATOPATHOLOGY LABORATORY Disclaimer An external and internal positive and negative controls are appropriate for the histochemical, immunohistochemical and immunofluorescence stain(s) in this case (if any), except where stated explicitly. The performance characteristics of the stain(s) cited in this report were developed and its performance characteristic determined by the Dermatopathology Laboratory at [facility]. These tests need not be, and therefore are not, approved by the [place] Food and Drug Administration. The tests are used for clinical purposes. Billing Codes Specimen Charges Stain Charges 17711 00302 1 1 2:37 PM [facility] DERMATOPATHOLOGY LABORATORY Embedded Images 2:37 PM [facility] DERMATOPATHOLOGY LABORATORY Pathology/Cytology TISSUE SPECIMEN FROM SKIN / Unknown 04/28/2018 04/29/2018 1:57 PM KICK BOXER Miscellaneous samples (specimen) TISSUE SPECIMEN FROM SKIN / Unknown 04/28/2018 04/29/2018 1:57 PM KICK BOXER us Aristides Thornton MD LAB - PATHOLOGY/CYTOLOGY ORD ERABLES Final Result DERMATOPATHOLOGY LABORATORY [facility] - Department of Dermatology [address] [facility] 5th Floor Lab B [address] [phone] documented in this encounter Visit Diagnoses Not on filedocumented in this encounter Additional Health Concerns Infection Onset Date Last Indicated Resolved Time COVID-19 Under Investigation 07/08/2020 07/08/2020 07/08/2020 10:19 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 documented as of this encounter
--- OUTSIDE RECORDS SUMMARY | 2025-01-16 11:18 | XMS_ITS | Clinical Summary ---
Author Organization [facility] [employer] Address [address] [place] [address] Care Team Providers Care Prepper Name Role Phone Unavailable Primary Care Provider Unavailabl e Source Comments [facility] [employer],non-owned Affiliates and Associated Physician Practices is amultiple site organization consisting of ambulatory clinics and hospital sitesin [place], [place], [place] and [place]. This disclosure is being madepursuant to the Care Everywhere program and may not contain all information available regarding this patient. 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
--- OUTSIDE RECORDS SUMMARY | 2025-01-16 11:18 | XMS_ITS | Encounter Summary ---
Author Organization [facility] Address [address] [place] [address] Care Team Providers Care Sales And Marketing Assistant Name Role Phone Unavailable Primary Care Provider Unavailabl e Encounter Details Date Type Department Care Team (Late st Contact Info) Description 09/30/2022 Lab Requisition [facility] DermPath Lab [address] [facility] [place] [address] Aristides Thornton MD [address] [place] [address] Social History Tobacco Use Types Packs/Day Years Used Date Smoking Tobacco: Never Smokeless Tobacco: Never Comments No Sex and Gender Information Value Date Recorded Sex Assigned at Not on file 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 Gender Identity Not on file Sexual Orientation Not on file documented as of this encounter Plan of Treatment Not on file documented as of this encounter Procedures Procedure Name Priority Date/Time Associated Diagnosis Comments DERMATOPATHOLOGY Routine 09/29/2022 3:33 AM CDT documented in this encounter Results * DERMATOPATHOLOGY (09/29/2022 3:33 AM CDT) Case Report Dermatopathology Report Case: [id number] Authorizing Provider: Aristides Thornton MD Collected: 09/29/2022 03:33 AM Ordering Location: [facility] DermPath Lab Received: 09/30/2022 01:02 [...] specimen consists of a punch excision measuring 4v2i1zf, 7v9x1xn and 6x3l25ck. All pieces of tissue are inked and [...] by the Dermatopathology Laboratory at [facility], directed by Dr. Renetta Jacobo. These tests need not be, and therefore are not, approved by the [place] Food and Drug Administration. The tests are used for clinical purposes. Billing Codes Specimen Charges Stain Charges 16637 1 10:08 AM CDT DERMATOPATHOLOGY LABORATORY Embedded Images 10:08 AM CDT DERMATOPATHOLOGY LABORATORY Pathology/Cytolo gy TISSUE SPECIMEN FROM SKIN / Unknown 09/29/2022 3:33 AM CDT 09/30/2022 1:02 PM CDT Aristides Thornton MD LAB - PATHOLOGY/CYTOLOGY ORD ERABLES Edited Result - Final DERMATOPATHOLOGY LABORATORY [facility] - Department of Dermatology [facility] Specialized Medicine [address] [place] [address], [address]rd Floor [address] [phone] documented in this encounter Visit Diagnoses Not on filedocumented in this encounter
--- OUTSIDE RECORDS SUMMARY | 2025-01-16 11:18 | XMS_ITS | Encounter Summary ---
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
== END 2025-01-16 10:25 | disposition home or self-care (01) ==
LOC: ANHIMG 10:25
PROVIDERS: PCP Family Medicine; Visit Provider Family Medicine
DX: N39.0 Urinary tract infection, site not specified (principal); R10.31 Right lower quadrant pain
CPT/HCPCS: 74018; 74176; 87086